=== PATIENT | male | born 1950 | race Caucasian/White ===

== ENCOUNTER → 2024-08-12 | Outpatient (CLI) | payer MEDICARE, OTHER, SELFPAY ==
--- NOTE | 2024-08-12 15:22 | XR_ITS ---
Examination: Abdomen sonogram, complete Date and time of exam: August 22, 2024 1534 hours INDICATIONS: Right upper abdominal pain beginning 4 hours ago. Technique: Multiple real-time grayscale transabdominal sonographic images of the abdomen have been obtained. Findings: Negative for gallstones Gallbladder wall 0.5 cm no edema Common bile duct 0.6 cm Pancreatic head is prominent 4.7 cm Aorta proximally measures 3.1 cm Liver 17.2 cm lobular contour fatty infiltration no focal liver lesions Normal hepatopedal portal venous flow Patent IVC Right kidney 14.2 x 7.6 x 7.6 cm renal cortex 2.1 cm Left kidney 14.4 x 8.5 x 8.3 cm cortex 2.3 cm Moderate renal parenchymal scar formation Dilated vessels near the left kidney clinical correlation advised Spleen 14.3 cm IMPRESSION: Negative for cholelithiasis Gallbladder wall is thickened although no edema, clinical correlation advised Prominent pancreatic head, consider CT scan abdomen pancreas post intravenous contrast follow-up Mild hepatomegaly primary hepatocellular disease Mild splenomegaly Moderate bilateral renal parenchymal scar formation, no hydronephrosis
== END | disposition home or self-care (01) ==
PROVIDERS: PCP Family Medicine; Referring Provider Internal Medicine Cardiovascular Disease; Visit Provider Internal Medicine Cardiovascular Disease
DX: K82.8 Other specified diseases of gallbladder (principal); R16.0 Hepatomegaly, not elsewhere classified; R16.1 Splenomegaly, not elsewhere classified; N28.89 Other specified disorders of kidney and ureter; K86.89 Other specified diseases of pancreas
CPT/HCPCS: 76700

== ENCOUNTER 2024-08-18 12:11 | Outpatient (RCR) | payer MEDICARE, OTHER, SELFPAY ==
--- NOTE | 2024-08-18 12:30 | XR_ITS ---
Examination: HUMZA, hepatobiliary radioisotope scan Date and time of exam: August 18, 2024 1220 hours INDICATIONS: Sharp abdominal pain lasting 10 hours beginning last week Technique: 6.2 mCi of 99M Hepatolite administered. Serial imaging then obtained from immediate through 60 minutes. Findings: Radioisotope activity within the liver is reasonably homogenous. Gallbladder, common bile duct small bowel activity noted Impression: Gallbladder and small bowel activity noted, negative for cystic duct obstruction
== END 2024-08-23 23:59 | disposition home or self-care (01) ==
LOC: SNUC 12:11
PROVIDERS: PCP Family Medicine; Referring Provider Physician Assistant; Visit Provider Physician Assistant
DX: R10.9 Unspecified abdominal pain (principal); Z01.818 Encounter for other preprocedural examination
CPT/HCPCS: 78227; A9537

== ENCOUNTER → 2024-08-22 | Outpatient (CLI) | payer MEDICARE, OTHER, SELFPAY ==
[2024-08-22 10:21] LABS: Alanine Aminotransferase 138 U/L (10-49); Albumin, Serum 3.6 gm/dL (3.4-4.8); Albumin/Globulin Ratio 1.1 (1.2-2.2); Alkaline Phosphatase 308 U/L (46-116); Anion Gap 9 (7-16); Aspartate Amino Transferase 163 U/L (0-34); BUN/Creatinine Ratio 22 Ratio (12-20); Bilirubin,Total 14.4 mg/dL (0.3-1.2); Blood Urea Nitrogen 22 mg/dL (9-23); Calcium 9.6 mg/dL (8.3-10.6); Calcium (Corrected) 9.9 mg/dL (8.5-10.1); Chloride 106 mMol/L (98-107); Globulin 3.4 gm/dL (2.3-3.5); Glucose 103 mg/dL (74-106); Osmolality,Calculated 282 (275-295); Potassium 3.8 mMol/L (3.4-5.1); Sodium 140 mMol/L (136-145); eGFR > 60 See Note
[2024-08-22 14:31] LABS: Urea Breath Test Negative (Negative)
== END | disposition home or self-care (01) ==
PROVIDERS: PCP Physician Assistant; Referring Provider Physician Assistant; Visit Provider Physician Assistant
DX: R11.0 Nausea (principal); R94.5 Abnormal results of liver function studies
CPT/HCPCS: 36415; 80053; 83013; 83014

== ENCOUNTER → 2024-08-23 | Outpatient (CLI) | payer MEDICARE, OTHER, SELFPAY ==
--- NOTE | 2024-08-23 10:00 | XR_ITS ---
Examination: Upper GI series with KUB Esophagram standard 18 spot fluoroscopic films of the esophagus and stomach, CASTILLO AP abdomen films Fluoroscopy August 23, 2024 1059 hours INDICATIONS: Abdominal pain months TECHNIQUE AND FINDINGS: Sap Technical [employer] AP supine abdomen nonobstructive bowel gas pattern Patient swallowed thin barium with 19 spot fluoroscopic films of the esophagus and stomach Primary peristaltic esophageal waves Small sliding esophageal hernia Intermittent esophageal reflux No stricture at the gastroesophageal junction No gastric mass deformity or ulceration No duodenal ulcer Fluoroscopy 20 seconds 18 spot fluoroscopic films IMPRESSION: Intermittent gastroesophageal reflux No stricture at the gastroesophageal junction No gastric mass deformity or ulceration Negative for duodenitis
== END | disposition home or self-care (01) ==
LOC: CDIM 10:07
PROVIDERS: PCP Family Medicine; Referring Provider Physician Assistant; Visit Provider Physician Assistant
DX: K21.9 Gastro-esophageal reflux disease without esophagitis (principal)
CPT/HCPCS: 74240

== ENCOUNTER → 2024-08-25 | Outpatient (CLI) | payer MEDICARE, OTHER, SELFPAY ==
[2024-08-25 13:01] LABS: Basophils # (Auto) 0.1 Thou/mm3 (0.0-0.2); Basophils % (Auto) 1 % (0-2.5); Eosinophils # (Auto) 0.1 Thou/mm3 (0.0-0.5); Eosinophils % (Auto) 2 % (0-10); Hematocrit 39.4 % (41.0-53.0); Hemoglobin 13.6 g/dL (13.5-16.0); Immature Granulocytes % (Auto) 0 % (0-0); Immature Granulocytes Auto 0.02 Thou/mm3 (0.00-0.00); Lymphocytes # (Auto) 1.2 Thou/mm3 (1.0-4.8); Lymphocytes % (Auto) 21 % (10-50); Mean Corpuscular HGB Conc 34.5 g/dl (31.0-37.0); Mean Corpuscular Hemoglobin 32.9 pg (25.0-35.0); Mean Corpuscular Volume 95 fL (80-100); Monocytes # (Auto) 0.8 Thou/mm3 (0.0-0.8); Monocytes % (Auto) 14 % (0-12); Neutrophils # (Auto) 3.6 Thou/mm3 (1.8-7.7); Neutrophils % (Auto) 61 % (37-80); Nucleated Red Blood Cell % 0 /100 WBC (0); Platelet Count 130 Thou/mm3 (140-440); Red Blood Count 4.14 Miln/mm3 (4.50-5.90); White Blood Count 5.9 Thou/mm3 (3.8-10.6)
[2024-08-25 13:04] LABS: INR 1.3 (0.9-1.3); Prothrombin Time 13.9 Seconds (9.0-12.2)
[2024-08-25 13:23] LABS: Ammonia 40 uMol/L (11-32)
[2024-08-25 13:41] LABS: Alanine Aminotransferase 122 U/L (10-49); Albumin, Serum 3.5 gm/dL (3.4-4.8); Albumin/Globulin Ratio 1.1 (1.2-2.2); Alkaline Phosphatase 305 U/L (46-116); Anion Gap 8 (7-16); Aspartate Amino Transferase 148 U/L (0-34); BUN/Creatinine Ratio 23 Ratio (12-20); Blood Urea Nitrogen 21 mg/dL (9-23); Calcium 9.6 mg/dL (8.3-10.6); Carbon Dioxide 26.2 mMol/L (20.0-31.0); Chloride 105 mMol/L (98-107); Creatinine (Component) 0.9 mg/dL (0.6-1.3); Globulin 3.2 gm/dL (2.3-3.5); Potassium 4.3 mMol/L (3.4-5.1); Sodium 139 mMol/L (136-145); Total Protein 6.7 gm/dL (5.7-8.2); eGFR > 60 See Note
[2024-08-25 15:34] LABS: Glucose 114 mg/dL (74-106); Osmolality,Calculated 281 (275-295)
== END | disposition home or self-care (01) ==
PROVIDERS: PCP Physician Assistant; Referring Provider Specialist; Visit Provider Specialist
DX: R10.9 Unspecified abdominal pain (principal); R11.0 Nausea; R94.5 Abnormal results of liver function studies; R53.83 Other fatigue; R79.89 Other specified abnormal findings of blood chemistry; R93.5 Abnormal findings on diagnostic imaging of other abdominal regions, including retroperitoneum; I10 Essential (primary) hypertension; K76.89 Other specified diseases of liver; K76.0 Fatty (change of) liver, not elsewhere classified; K70.30 Alcoholic cirrhosis of liver without ascites
CPT/HCPCS: 36415; 80053; 82105; 82140; 85025; 85610

== ENCOUNTER → 2024-08-25 | Outpatient (CLI) | payer MEDICARE, OTHER, SELFPAY ==
--- NOTE | 2024-08-25 17:00 | XR_ITS ---
Examination: MRI abdomen with intravenous contrast. MRI abdomen without intravenous contrast. Date and time of exam: August 25, 2024 1536 hrs. Indications: Abdominal pain other specified diseases of the liver, jaundice 3 weeks, liver irregular in contour with 12 mm solid right lobe liver lesion on CT abdomen August 16, 2024 Technique: Multiple axial, sagittal and coronal sections of the abdomen obtained. Transverse images, TR 6020, TE 107. T1 weighted transverse images, TR 582, TE 9.5. T2-weighted sagittal images, TR 4000, TE 105. T2-weighted sagittal images, TR 4000, TE 5. Coronal images, TR 4210, TE 107. Axial and coronal images are obtained post 19 cc intravenous injection, gadolinium. Findings: Cirrhosis, liver irregular in contour Precontrast images demonstrate subtle increased signal in the anterior lower right lobe of the liver at the site of the CT abdomen liver lesion This lesion is better defined on the postcontrast images with better margination or conspicuity to the surrounding liver and measures 39 x 22 mm postcontrast axial image 21 A second more anterior liver lesion is noted on the postcontrast images, 30 x 23 mm with a satellite 6 x 6 mm lesion Spleen is not enlarged Portosystemic collateral vessels medial to the spleen No pancreatic mass No hydronephrosis No ascites Impression: 3 liver lesions are identified on this MRI study, differential would include multifocal primary hepatocellular disease and hepatic metastases The largest 2 lesions are amenable to CT-guided percutaneous biopsy for diagnosis as clinically warranted
== END | disposition home or self-care (01) ==
PROVIDERS: Referring Provider Physician Assistant; Visit Provider Physician Assistant
DX: K76.9 Liver disease, unspecified (principal)
CPT/HCPCS: 74183; A9579

== ENCOUNTER → 2024-08-26 | Outpatient (CLI) | payer MEDICARE, OTHER, SELFPAY ==
[2024-08-26 10:40] LABS: INR 1.5 (0.9-1.3)
[2024-08-26 11:08] LABS: Alanine Aminotransferase 118 U/L (10-49); Albumin, Serum 3.4 gm/dL (3.4-4.8); Alkaline Phosphatase 293 U/L (46-116); Aspartate Amino Transferase 132 U/L (0-34); Bilirubin,Direct 13.7 mg/dL (0.0-0.3); Total Protein 6.4 gm/dL (5.7-8.2)
[2024-08-26 11:10] LABS: Bilirubin,Total 19.3 mg/dL (0.3-1.2)
== END | disposition home or self-care (01) ==
LOC: COPL 09:44
PROVIDERS: PCP Physician Assistant; Referring Provider Specialist; Visit Provider Specialist
DX: K72.90 Hepatic failure, unspecified without coma (principal)
CPT/HCPCS: 36415; 80076; 85610

== ENCOUNTER → 2024-09-08 | Outpatient (CLI) | payer MEDICARE, OTHER, SELFPAY ==
[2024-09-08 13:11] LABS: Ammonia 31 uMol/L (11-32)
[2024-09-08 13:21] LABS: Alanine Aminotransferase 280 U/L (10-49); Albumin, Serum 3.2 gm/dL (3.4-4.8); Albumin/Globulin Ratio 0.9 (1.2-2.2); Alkaline Phosphatase 405 U/L (46-116); Anion Gap 9 (7-16); Aspartate Amino Transferase 252 U/L (0-34); BUN/Creatinine Ratio 20 Ratio (12-20); Blood Urea Nitrogen 26 mg/dL (9-23); Calcium 8.9 mg/dL (8.3-10.6); Calcium (Corrected) 9.5 mg/dL (8.5-10.1); Carbon Dioxide 23.8 mMol/L (20.0-31.0); Chloride 101 mMol/L (98-107); Creatinine (Component) 1.3 mg/dL (0.6-1.3); Globulin 3.5 gm/dL (2.3-3.5); Glucose 120 mg/dL (74-106); Osmolality,Calculated 273 (275-295); Sodium 134 mMol/L (136-145); Total Protein 6.7 gm/dL (5.7-8.2); eGFR 59 See Note
[2024-09-08 13:37] LABS: Bilirubin,Total 24.4 mg/dL (0.3-1.2)
== END | disposition home or self-care (01) ==
LOC: COPL 12:30
PROVIDERS: PCP Physician Assistant; Referring Provider Physician Assistant; Visit Provider Physician Assistant
DX: K70.30 Alcoholic cirrhosis of liver without ascites (principal)
CPT/HCPCS: 36415; 80053; 82140

== ENCOUNTER 2024-09-14 08:12 | Outpatient (CLI) | payer MEDICARE, OTHER, SELFPAY ==
[2024-09-12 14:33] VITALS: BMI 32.1
[2024-09-13 11:31] LABS: Basophils % (Auto) 0 % (0-2.5); Eosinophils # (Auto) 0.1 Thou/mm3 (0.0-0.5); Eosinophils % (Auto) 0 % (0-10); Hematocrit 37.9 % (41.0-53.0); Hemoglobin 13.5 g/dL (13.5-16.0); Immature Granulocytes % (Auto) 2 % (0-0); Immature Granulocytes Auto 0.28 Thou/mm3 (0.00-0.00); Lymphocytes # (Auto) 1.7 Thou/mm3 (1.0-4.8); Lymphocytes % (Auto) 15 % (10-50); Mean Corpuscular HGB Conc 35.6 g/dl (31.0-37.0); Mean Corpuscular Hemoglobin 32.4 pg (25.0-35.0); Mean Corpuscular Volume 91 fL (80-100); Monocytes % (Auto) 9 % (0-12); Neutrophils # (Auto) 8.5 Thou/mm3 (1.8-7.7); Neutrophils % (Auto) 74 % (37-80); Nucleated Red Blood Cell % 0 /100 WBC (0); Platelet Count 182 Thou/mm3 (140-440); RDW Standard Deviation 66.4 fL (35.1-43.9); Red Blood Count 4.17 Miln/mm3 (4.50-5.90); White Blood Count 11.5 Thou/mm3 (3.8-10.6)
[2024-09-13 11:48] LABS: Creatinine (Component) 1.4 mg/dL (0.6-1.3); Estimated Creatinine Clearance 59.5 mL/min (>60); eGFR 54 See Note
[2024-09-13 12:03] LABS: INR 1.3 (0.9-1.3); Partial Thromboplastin Time 30.2 Seconds (22.0-36.0); Prothrombin Time 14.1 Seconds (9.0-12.2)
[2024-09-14] VITALS (15 sets, daily range): BP systolic 109–155; BP diastolic 54–88; PULSE 59–91; RESP 12–20; TEMP 36.4–36.6; O2SAT 96–100
[2024-09-14] MEDS: SODIUM CHLORIDE 0.9% 100 ML 20 ML IV (11:05)
[2024-09-14] MEDS: fentaNYL CIT INJ 50 mCg/ML AMP 2ML 100 MCG IVP (11:38)
--- NOTE | 2024-09-14 12:02 | XR_ITS ---
Examination: CT-guided percutaneous biopsy right lobe liver lesion CT abdomen with intravenous contrast Date and time of procedure: September 14, 2024 1142 hours INDICATIONS: Jaundice, abdominal pain 3 weeks, cirrhosis, right lobe liver lesion on MR abdomen August 25, 2024 Informed consent provided. A timeout was completed verifying correct patient, procedure, site and positioning. Technique: Axial 3 mm sections were obtained for localization of the right lobe liver lesion Appropriate area is marked. The patient's site was prepped and draped in sterile fashion Maximal sterile barrier technique utilized, including hand hygiene Local anesthesia was obtained with 1% lidocaine. Low dose protocols were performed. One or more of the following dose reduction techniques were used; automated exposure control, adjustment of the mA and/or KV according to patient size, use of iterative reconstruction technique. Utilizing CT fluoroscopic 2 core biopsies obtained of the right lobe liver lesion Patient appears in stable condition during this procedure. At completion of the procedure, the patient is in satisfactory condition. Estimated blood loss 0 cc Complete pathology report to follow. Impression: Successful CT-guided percutaneous biopsy right lobe liver lesion
--- NOTE | 2024-09-14 12:02 | XR_ITS ---
Examination: AP chest single view TECHNIQUE: Portable AP chest single view Exam date and time: September 2019 0516 hours INDICATIONS: Postop liver biopsy today. FINDINGS: No pneumothorax post liver biopsy Normal heart size Minor accentuation basilar bronchovascular markings Stable granuloma left lower lobe compared to chest x-ray May 07, 2012 IMPRESSION: No pneumothorax
--- NOTE | 2024-09-14 12:24 | PC.NURSE ---
1153 patient is awake, alert, breathing unlabored, s/p liver biopsy, dressing dry with no bleeding, patient transferred to [facility] for recovery. star xray ordered by . 1219 chest xray completed
--- NOTE | 2024-09-14 14:32 | PC.NURSE ---
1318 patient is awake, alert, breathing unlabored, dressing dry with no bleeding, patient able to tolerate sandwich and 7up with no nausea or vomiting, meets discharge criteria, discharge instructions given to patient and , patient discharged home in wheelchair with all belongings. no pneumothorax seen on xray images, ok to discharge patient home per
== END 2024-09-14 13:18 | disposition home or self-care (01) ==
PROVIDERS: Radiology Diagnostic Radiology; PCP Family Medicine; Referring Provider Specialist; Visit Provider Specialist
DX: K74.00 Hepatic fibrosis, unspecified (principal); Z01.812 Encounter for preprocedural laboratory examination
CPT/HCPCS: 47000; 36415; 77012; 82565; 85025; 85610; 85730; J3010; J7050

== ENCOUNTER 2024-09-19 14:20 | Inpatient (IN) | payer MEDICARE, OTHER, SELFPAY ==
[2024-09-19] VITALS (12 sets, daily range): BP systolic 124–143; BP diastolic 59–75; PULSE 71–78; RESP 13–25; TEMP 36.4–36.7; O2SAT 96–99; BMI 31.4; BMI 31.1
--- NOTE | 2024-09-19 14:52 | EDNOTE_ITS ---
ED General RME/HPI General Chief complaint: Weakness Stated complaint: WEAKNESS Time Seen by Provider: 09/19/24 14:50 Arrival date/time: 09/19/24 14:20 CC: Weakness HPI patient presents the ER via EMS reports stable vital signs observing the patient ambulating to the [facility] without complications patient is complaining of severe weakness. He is seen by Dr. Lay with his PCP and Dr. Danial FARAH, patient has cirrhosis secondary to alcoholism and thinks he is also hepatitis positive. The patient states he is frustrated taking his lactulose but denies any altered mentation. Patient denies any chest pain shortness of breath or difficulty breathing. Related Data Home Medications ?Medication ?Instructions ?Recorded ?Confirmed amlodipine 5 mg tablet 5 mg PO QDAY 01/05/24 09/14/24 aspirin 81 mg capsule 81 mg PO QDAY 01/05/24 09/14/24 losartan 100 mg tablet 100 mg PO QDAY 01/05/24 09/14/24 tizanidine 4 mg tablet 4 mg PO QDAY 01/05/24 09/14/24 prednisone 10 mg tablet 40 mg PO QDAY 09/14/24 09/14/24 Allergies Allergy/AdvReac Type Severity Reaction Status Date / Time No Known Allergies Allergy Verified 09/14/24 08:52 Review of Systems Review of Systems Narrative Review of Systems: GEN: No fever, no chills, no weight loss EYES: No discharge, no visual changes, no pain HEENT: No ear pain, no congestion, no sore throat PULM: No shortness of breath, no cough, no congestion CV: No chest pain, no dyspnea on exertion, no palpitations GI: No nausea, no vomiting, no diarrhea, no pain, no constipation : No frequency, no urgency, no dysuria MUSC/SKEL: No joint pain, no back pain SKIN: No rash PSYCH: No hallucinations, no depression HEME/LYMPH: No easy bleeding or bruising tendencies NEURO: + weakness, no headache Past Medical History Past Medical History NEUROLOGIC: Negative Neurological Disorders or Seizures CARDIAC: Positive Cardiac Disorders and Hypertension; Negative Congestive Heart Failure RESPIRATORY: Positive Asthma (as a kid); Negative Chronic Obstructive Pulmonary Disease (COPD) GASTROINTESTINAL: Negative Gastrointestinal Disorders GENITOURINARY: Negative Genitourinary Disorders or Renal Disease MUSCULOSKELETAL: Positive Musculoskeletal Disorders (L3 and L4 correction. L4-L5 bone spurs.) ENDOCRINE: Negative Endocrine Disorders, Diabetes Mellitus Type 1 or Diabetes Mellitus Type 2 HEMATOLOGIC: Negative Blood Disorders OTHER HISTORY: Negative Blood Transfusions, Anesthesia Reactions or Cancer Family History FAMILY HISTORY: Negative Family Anesthesia Reaction Surgical History SURGICAL: Positive Eye Surgery (glaucoma lenses replaced), Tonsillectomy and Joint Replacement; Negative Cardiac Surgery Social History SMOKING STATUS: Never smoker ED Exam Narrative Physical exam: [General: Uncomfortable but not in any acute distress Head normocephalic HEENT: Eyes icteric sclera's, pupils are PERRLA EOMs are intact mouth pink dry membranes. All other subsystems of HEENT are within acceptable limits Neck is supple nontender no JVD no edema Chest equal chest rise nontender to palpation Respiratory: Clear to auscultation no wheezes crackles or rubs CV: Rate rhythm is regular no murmurs rubs or clicks Abdomen is distended secondary to body habitus soft nontender no masses positive bowel sounds all 4 quadrants Back: No CVA tenderness no spinous process tenderness from cervical spine thoracic and lumbar spine Skin: Jaundice, intact no petechiae rash induration ulceration or crepitus Extremities: Moving all extremity against resistance cap refill less than 2 seconds neurosensory intact Neuro: Awake alert oriented x3 Glascow coma 15 no focal deficits] Course Course Course Narrative: Patient's case discussed with Dr. Barrow who is familiar with the patient states he wants the patient admitted he will consult for the cirrhosis component. Patient needs to be admitted for SABINE. Patient's case discussed with Dr. Maravilla resident for Dr. Guevara who agrees to except for admission. Quality Measures none Orders Category Date Time Status Consult to Gastroenterology Stat Cons 09/19/24 16:34 Ordered Ammonia Stat Lab 09/19/24 15:10 Completed B-Type Natriuretic Peptide Stat Lab 09/19/24 15:10 Completed CBC Stat Lab 09/19/24 15:10 Completed Comprehensive Metabolic Panel Stat Lab 09/19/24 15:10 Completed Drug Screen,Urine Stat Lab 09/19/24 14:51 Ordered LDH (Lactate Dehydrogenase) Stat Lab 09/19/24 15:10 Completed Magnesium Stat Lab 09/19/24 15:10 Completed Partial Thromboplastin Time Stat Lab 09/19/24 15:10 Completed Prothrombin Time with INR Stat Lab 09/19/24 15:10 Completed Urinalysis Stat Lab 09/19/24 14:51 Ordered Sodium Chloride 0.9% 1000 ml [Ns] 1,000 ml Med 09/19/24 16:44 Active IV 85 mls/hr Vital Signs Vital signs: Vital Signs Temperature 97.6 F 09/19/24 14:24 Pulse Rate 77 09/19/24 14:24 Respiratory Rate 17 09/19/24 14:24 Blood Pressure 124/75 09/19/24 14:24 Pulse Oximetry (%) 99 09/19/24 14:24 Oxygen Delivery Method Room Air 09/19/24 14:24 MDM Patient data External records reviewed:: [facility] previous records and EMS form Clinical information provided by:: patient and EMS Social determinants that could affect healthcare access:: none Patient has the following chronic illnesses:: Cirrhosis alcoholic based How is presenting disease/condition affected by chronic disease/condition?: u neffected by Evaluation data The following diagnostics were reviewed and interpreted by me:: lab results and radiology exam(s) Lab and/or radiology exams considered but not ordered:: CBC shows a WBC of 10.7 and an H&H of 13.0 and 35.5 platelets of 170 CMP shows sodium 143 potassium 3.4 chloride of 108 CO2 of 21.9 BUN of 52 creatinine 2.1 glucose of 120 Total bili of 27.9 AST 361 ALT 373 alk phos of 557. Interpretation Summary: Patient has AKA but also with worsening cirrhosis. Patient is to be admitted with a consult by Dr. Barrow. Medications Medications considered but not ordered:: None Medication administrations:: Medication Administration History Sodium Chloride (Ns) 1,000 mls @ 85 mls/hr IV .[id number] [facility] Stop: 10/19/24 16:43 None Consultations Consultation(s) initiated? (list below): Yes Diagnosis Differential Diagnosis ED Complaint MDM: SABINE cirrhosis sepsis Most likely diagnosis given after review of the tests above:: SABINE cirrhosis Admission Indicated Admission indicated?: indicated Explain why admission is indicated or not indicated:: Further medical management Admission Request Was there a request for admission?: No Disposition Plan Disposition Plan: Admit Medical Decision Making Differential Diagnosis Differential Diagnosis: SABINE cirrhosis sepsis Lab Data 09/19/24 15:10 09/19/24 15:10 Labs: Lab Results 09/19/24 Range/Units 15:10 WBC 10.7 H (3.8-10.6) Thou/mm3 RBC 4.01 L (4.50-5.90) Miln/mm3 Hgb 13.0 L (13.5-16.0) g/dL Hct 35.5 L (41.0-53.0) % MCV 89 (80-100) fL MCH 32.4 (25.0-35.0) pg MCHC 36.6 (31.0-37.0) g/dl RDW Std Deviation 67.8 H (35.1-43.9) fL Plt Count 170 (140-440) Thou/mm3 Neut % (Auto) 72 (37-80) % Lymph % (Auto) 13 (10-50) % [place] % (Auto) 11 (0-12) % Eos % (Auto) 1 (0-10) % Baso % (Auto) 1 (0-2.5) % Neut # (Auto) 7.7 (1.8-7.7) Thou/mm3 Lymph # (Auto) 1.4 (1.0-4.8) Thou/mm3 [place] # (Auto) 1.1 H (0.0-0.8) Thou/mm3 Eos # (Auto) 0.1 (0.0-0.5) Thou/mm3 Baso # (Auto) 0.1 (0.0-0.2) Thou/mm3 Immature Gran # (Auto) 0.22 H (0.00-0.00) Thou/mm3 Absolute Nucleated RBC 0.00 (0.00-0.00) Thou/mm3 Immature Gran % 2 H (0-0) % Nucleated RBC % 0 (0) /100 WBC PT 14.9 H (9.0-12.2) Seconds INR 1.4 H (0.9-1.3) APTT 30.9 (22.0-36.0) Seconds Sodium 143 (136-145) mMol/L Potassium 3.4 (3.4-5.1) mMol/L Chloride 108 H (98-107) mMol/L Carbon Dioxide 21.9 (20.0-31.0) mMol/L Anion Gap 13 (7-16) BUN 52 H (9-23) mg/dL Creatinine 2.1 H D (0.6-1.3) mg/dL Estim Creat Clear Calc 38.7 L (>60) mL/min eGFR 33 L (60 - ) See Note BUN/Creatinine Ratio 25 H (12-20) Ratio Glucose 120 H (74-106) mg/dL Calculated Osmolality 299 H (275-295) Calcium 8.9 (8.3-10.6) mg/dL Corrected Calcium 9.7 (8.5-10.1) mg/dL Magnesium 2.6 (1.6-2.6) mg/dL Total Bilirubin 27.9 H* (0.3-1.2) mg/dL AST 361 H (0-34) U/L ALT 373 H (10-49) U/L Alkaline Phosphatase 557 H (46-116) U/L Ammonia 30 (11-32) uMol/L Lactate Dehydrogenase 338 H (120-246) U/L B-Natriuretic Peptide 38 (0-100) pg/mL Total Protein 6.2 (5.7-8.2) gm/dL Albumin 3.0 L (3.4-4.8) gm/dL Globulin 3.2 (2.3-3.5) gm/dL Albumin/Globulin Ratio 0.9 L (1.2-2.2) Discharge Plan Plan Patient Disposition: Other Care w/in Hosp ([facility]) Prescriptions/Referrals Prescriptions/Med Rec: No Action tizanidine 4 mg tablet 4 mg PO QDAY Hold Instructions: Resume on 01/06/24. Patient Comments: TAKE 1 TABLET BY MOUTH THREE TIMES A DAY NEEDED FOR 10 DAYS amlodipine 5 mg tablet 5 mg PO QDAY losartan 100 mg tablet 100 mg PO QDAY Patient Comments: TAKE 1 TABLET BY MOUTH EVERY DAY aspirin 81 mg Capsule 81 mg PO QDAY Hold Instructions: Resume on 09/16/24. Resume aspirin on thursday09/16/24 prednisone 10 mg Tablet 40 mg PO QDAY Rx Instructions: total of 40mg daily in divided doses Problem List Clinical Impression: SABINE (acute kidney injury), Cirrhosis, Jaundice Patient/Caregiver Discharge Instructions Print Language: Armenian Stand Alone Forms: [facility] Award Info., Patient Portal Info Letter PA/WOOD TYPE CUTTER Supervising Physician PA/WOOD TYPE CUTTER Supervising Physician: Jb Garsia ENP
[2024-09-19 15:16] LABS: Basophils # (Auto) 0.1 Thou/mm3 (0.0-0.2); Basophils % (Auto) 1 % (0-2.5); Eosinophils # (Auto) 0.1 Thou/mm3 (0.0-0.5); Eosinophils % (Auto) 1 % (0-10); Hematocrit 35.5 % (41.0-53.0); Immature Granulocytes % (Auto) 2 % (0-0); Immature Granulocytes Auto 0.22 Thou/mm3 (0.00-0.00); Lymphocytes # (Auto) 1.4 Thou/mm3 (1.0-4.8); Lymphocytes % (Auto) 13 % (10-50); Mean Corpuscular HGB Conc 36.6 g/dl (31.0-37.0); Mean Corpuscular Hemoglobin 32.4 pg (25.0-35.0); Mean Corpuscular Volume 89 fL (80-100); Monocytes # (Auto) 1.1 Thou/mm3 (0.0-0.8); Monocytes % (Auto) 11 % (0-12); Neutrophils # (Auto) 7.7 Thou/mm3 (1.8-7.7); Neutrophils % (Auto) 72 % (37-80); Nucleated Red Blood Cell % 0 /100 WBC (0); Platelet Count 170 Thou/mm3 (140-440); RDW Standard Deviation 67.8 fL (35.1-43.9); Red Blood Count 4.01 Miln/mm3 (4.50-5.90); White Blood Count 10.7 Thou/mm3 (3.8-10.6)
[2024-09-19 15:33] LABS: INR 1.4 (0.9-1.3); Partial Thromboplastin Time 30.9 Seconds (22.0-36.0); Prothrombin Time 14.9 Seconds (9.0-12.2)
--- NOTE | 2024-09-19 15:35 | PC.NURSE ---
pt came in due to jaundice, confusion, and gen body weakness for a few mo but worse today. pt has been dx with liver failure and lesions on liver and bipsy done per and they were benign. pt is gcs of 15 but is slow to respond. at bedside. vss.
[2024-09-19 15:36] LABS: B-Type Natriuretic Peptide 38 pg/mL (0-100)
[2024-09-19 15:37] LABS: Ammonia 30 uMol/L (11-32)
[2024-09-19 15:45] LABS: Alanine Aminotransferase 373 U/L (10-49); Albumin/Globulin Ratio 0.9 (1.2-2.2); Alkaline Phosphatase 557 U/L (46-116); Anion Gap 13 (7-16); Aspartate Amino Transferase 361 U/L (0-34); BUN/Creatinine Ratio 25 Ratio (12-20); Blood Urea Nitrogen 52 mg/dL (9-23); Calcium 8.9 mg/dL (8.3-10.6); Calcium (Corrected) 9.7 mg/dL (8.5-10.1); Carbon Dioxide 21.9 mMol/L (20.0-31.0); Chloride 108 mMol/L (98-107); Creatinine (Component) 2.1 mg/dL (0.6-1.3); Estimated Creatinine Clearance 38.7 mL/min (>60); Globulin 3.2 gm/dL (2.3-3.5); Glucose 120 mg/dL (74-106); LDH (Lactate Dehydrogenase) 338 U/L (120-246); Magnesium 2.6 mg/dL (1.6-2.6); Osmolality,Calculated 299 (275-295); Potassium 3.4 mMol/L (3.4-5.1); Sodium 143 mMol/L (136-145); Total Protein 6.2 gm/dL (5.7-8.2); eGFR 33 See Note
[2024-09-19 16:13] LABS: Bilirubin,Total 27.9 mg/dL (0.3-1.2)
--- NOTE | 2024-09-19 17:37 | PD.RESHP ---
Documentation for date of: 09/19/24 HPI History of Present Illness Chief complaint: weakness History of present illness: 74-year-old male with past medical history of alcohol cirrhosis, alcohol use disorder, rheumatoid arthritis, hypertension, spinal stenosis, and CVA was admitted to the hospital on 09/19/2024 after coming to the ED which she complains of generalized weakness. On assessment patient stated that he has not been having good oral intake. He endorsed feeling shaky and having some mild cough as well as some confusion at times. who was at bedside and stated that he has been confused and that he has been having poor oral intake. Patient has cirrhosis diagnosed with liver biopsy in 09/14/2024 and he is following a GI specialist who is in talks for possible liver transplant. As per patient he states that his last alcoholic drink was around 8 months ago and that he has not had any other drink after that. At the time of assessment he was alert and oriented x 4. He had no complaints during this time and he also mentioned that he did not have any blood in the stools, vomiting blood, fevers, chills, or abdominal discomfort. ED course: Initially patient was afebrile and normotensive. Initial labs were relevant for mild leukocytosis (10.7), normocytic normochromic anemia (Hgb 13.0), coagulopathy (PT 14.9 and INR 1.4), SABINE (BUN 52 and creatinine 2.1), hyperbilirubinemia (27.9), transaminitis (AST 361/ALT 373/alkaline phosphatase 557), elevated lactate dehydrogenase 338, and hypoalbuminemia (3). There was some no initial imaging at this time. PMH: As above Social Hx: Past alcohol use (quit 8 months ago), denies any smoking or drugs Surgical Hx: Bilateral knee replacement, tonsillectomy, and thyroid biopsy Review of Systems Review of Systems Narrative Review of Systems: Constitutional: Denies sweats, Denies weight loss/gain, Denies fever, Denies chills, Admits weakness. HEENT: Denies hearing loss, Denies ear pain, Denies postnasal drip, Denies double vision, Denies blurry vision. Respiratory: Denies shortness of breath, Admits cough, Denies wheezing. Cardiovascular: Denies chest pain, Denies palpitations, Denies sudden loss of consciousness. GI: Denies blood in stool, Denies constipation, Denies abdominal pain, Denies difficulty swallowing, Denies nausea or vomit. : Denies urinary incontinence, Denies pain while urinating, Denies increased urinary frequency. MSK: Denies joint pain, Denies joint swelling, Denies numbness. Skin: Denies rash, Denies itching, Denies easy bruising. Neuro: Denies headaches, Denies dizziness, Denies seizures. Past Medical History Past Medical History NEUROLOGIC: Negative Neurological Disorders or Seizures CARDIAC: Positive Cardiac Disorders and Hypertension; Negative Congestive Heart Failure RESPIRATORY: Positive Asthma (as a kid); Negative Chronic Obstructive Pulmonary Disease (COPD) GASTROINTESTINAL: Negative Gastrointestinal Disorders GENITOURINARY: Negative Genitourinary Disorders or Renal Disease MUSCULOSKELETAL: Positive Musculoskeletal Disorders (L3 and L4 correction. L4-L5 bone spurs.) ENDOCRINE: Negative Endocrine Disorders, Diabetes Mellitus Type 1 or Diabetes Mellitus Type 2 HEMATOLOGIC: Negative Blood Disorders OTHER HISTORY: Negative Blood Transfusions, Anesthesia Reactions or Cancer Family History FAMILY HISTORY: Negative Family Anesthesia Reaction Surgical History SURGICAL: Positive Eye Surgery (glaucoma lenses replaced), Tonsillectomy and Joint Replacement; Negative Cardiac Surgery Social History SMOKING STATUS: Never smoker Exam Vital Signs Temp Pulse Resp BP Pulse Ox O2 Del Method 97.5 F 75 18 129/63 97 Room Air 09/19/24 16:20 09/19/24 16:20 09/19/24 16:20 09/19/24 16:20 09/19/24 16:20 09/19/24 16:20 Narrative Exam General: A/O x3, no acute distress Eyes: PERRL, EOMI. icteric, vision grossly intact. Ears: No ear pain, no ear discharge, Hearing grossly intact. Nose: No nasal discharge. Mouth/Throat: Dry mucous membranes, no redness, no lesions. Neck: Neck supple, non-tender, no cervical lymphadenopathy. Lungs: Clear DOMINIK to auscultation and percussion, No accessory muscle use. Cardio: Normal S1/S2, regular rhythm, no murmurs, no JVD Abdomen: Soft, non-tender, no palpable masses, peristalsis present, no guarding or rebound. Positive for fluid wave. Extremities: Symmetrical, no significant deformities, 2+ peripheral edema , non-tender, peripheral pulses presents. Skin: No rashes, no lesions, warm to touch. Jaundice all throughout. Neuro: No focal neurological deficits. motor and sensory intact Psych: Cooperative, appropriate mood and effect. Results: Labs 09/20/24 04:50 09/20/24 04:50 Labs: Short CBC 09/19/24 Range/Units 15:10 WBC 10.7 H (3.8-10.6) Thou/mm3 Hgb 13.0 L (13.5-16.0) g/dL Hct 35.5 L (41.0-53.0) % Plt Count 170 (140-440) Thou/mm3 BMP 09/19/24 15:10 Sodium 143 Potassium 3.4 Chloride 108 H Carbon Dioxide 21.9 BUN 52 H Creatinine 2.1 H D Glucose 120 H Calcium 8.9 Liver Function 09/19/24 Range/Units 15:10 Total Bilirubin 27.9 H* (0.3-1.2) mg/dL AST 361 H (0-34) U/L ALT 373 H (10-49) U/L Alkaline Phosphatase 557 H (46-116) U/L Albumin 3.0 L (3.4-4.8) gm/dL Quality Measures Quality Measures none Advance care planning discussed with:: patient Medications Home Medications and Allergies Home Medications ?Medication ?Instructions ?Recorded ?Confirmed ?Type amlodipine 5 mg tablet 5 mg PO QDAY 01/05/24 09/14/24 History aspirin 81 mg capsule 81 mg PO QDAY 01/05/24 09/14/24 History losartan 100 mg tablet 100 mg PO QDAY 01/05/24 09/14/24 History tizanidine 4 mg tablet 4 mg PO QDAY 01/05/24 09/14/24 History prednisone 10 mg tablet 40 mg PO QDAY 09/14/24 09/14/24 History Allergies Allergy/AdvReac Type Severity Reaction Status Date / Time No Known Allergies Allergy Verified 09/14/24 08:52 Visit Medications Acetaminophen (Acetaminophen 325 Mg Tablet) 650 mg PO Q6H PRN PRN Reason: pain and Fever >100.4 Stop: 10/19/24 17:22 Hydrocodone Bitart/Acetaminophen (Hydrocodone/Apap 5/325 Tablet) 1 tab PO Q4HR PRN PRN Reason: PAIN SCALE 4-6 (Moderate Stop: 09/24/24 17:22 Sodium Chloride (Ns) 1,000 mls @ 85 mls/hr IV .[id number] HAILY Stop: 10/19/24 16:43 Octreotide Acetate 1,000 mcg/ (Sodium Chloride) 102 mls @ 5.1 mls/hr IV .Q20H HAILY; Protocol Stop: 09/24/24 17:59 Ceftriaxone Sodium/Dextrose (Rocephin/D5w 1gm Iv Premix) 50 mls @ 100 mls/hr IV QDAY@1400 HAILY Stop: 09/26/24 17:29 Albumin Human (Albuminar-25 Ivpb) 25 gm in 100 mls @ 100 mls/hr IV QID [facility] Stop: 09/22/24 17:29 Octreotide Acetate 1,000 mcg/ (Sodium Chloride) 102 mls @ 5.1 mls/hr IV .Q20H HAILY; Protocol Stop: 09/20/24 13:29 Lactulose (Lactulose Syrup 20 Gm/30 Ml Udc) 10 gm PO QDAY [facility]; Protocol Stop: 10/20/24 08:59 Midodrine (Midodrine 5 Mg Tablet) 5 mg PO TID [facility] Stop: 10/19/24 17:29 Morphine Sulfate (Morphine Sulf Inj 10 Mg/Ml Vial) 2 mg IVP Q4H PRN PRN Reason: PAIN SCALE 7-10 (Severe Stop: 09/24/24 17:22 Ondansetron HCl (Ondansetron Inj 2 Mg/Ml Inj 2 Ml) 4 mg IV Q6H PRN; Protocol PRN Reason: NAUSEA OR VOMITING Stop: 10/19/24 17:22 Pantoprazole Sodium (Pantoprazole Inj 40 Mg Vial) 40 mg IVP QDAY [facility] Stop: 10/19/24 17:29 Discontinued Medications Ceftriaxone Sodium/Dextrose (Rocephin/D5w 1gm Iv Premix) 50 mls @ 100 mls/hr IV QDAY [facility] Stop: 09/26/24 17:23 Lactulose (Lactulose Syrup 20 Gm/30 Ml Udc) 20 gm PO QDAY [facility]; Protocol Stop: 10/20/24 08:59 Assessment & Plan Plan 74-year-old male with past medical history of alcohol cirrhosis, alcohol use disorder, rheumatoid arthritis, hypertension, spinal stenosis, and CVA was admitted to the hospital on 09/19/2024 for SABINE likely in the setting of poor oral intake versus hepatorenal in the setting of decompensated cirrhosis. #SABINE likely prerenal in the setting of #Poor oral intake #Decompensated cirrhosis #Hepatorenal syndrome? #Generalized weakness ?Patient came in with a creatinine of 2.1 and BUN of 52 ? Patient's base creatinine is around 1 with the most recent 1 being 1.3 on 09/08/2024 ?DDx SABINE likely prerenal in the setting of poor oral intake versus hepatorenal in the setting of decompensated cirrhosis ?MELD NA score of 3 points, 27 to 32% estimated mortality in 90 days ? Child-Hatfield score of 9 points, child class B, patient would benefit from liver transplant ?No suspicion for SBP now given the patient does not have any GI bleed Plan: ? IV fluids ? Lactulose 10 g daily ? Albumin 25 g 4 times daily ? Nephrology consulted, appreciate commendations ? GI consulted, appreciate recommendations ? Will continue to monitor #Coagulopathy #Hyperbilirubinemia #Transaminitis ? AST 361, ALT 373, alkaline phosphatase 557, T bilirubin 27.9 on admission ?PT 14.9 and INR 1.4 ? Most likely in the setting of decompensated cirrhosis Plan: ? Will continue to monitor #Hypoalbuminemia ? Albumin 3 on admission Plan: ? Albumin 25 g 4 times daily ? Return water #Mild leukocytosis ?Patient had WBC of 10.7 on admission ? Likely reactive ? No fever or possible source of infection. Plan: ? Will continue to monitor #Normocytic normochromic anemia ?Hemoglobin 13 admission ? Patient has a base hemoglobin of around 13.5 Plan: ? Will transfuse hemoglobin less than 7 ? Will continue monitor #Hx of CVA ? Patient takes aspirin at home #Hx of HTN ? Will hold off on antihypertensive medications for now given possible hepatorenal syndrome. Disposition: Patient admitted to med/tele for SABINE 2/2 poor oral intake vs hepatorenal. Diet: Renal GI prophylaxis: protonix DVT prophylaxis: SCDs Code: Full code Case disclosed with Attending Dr. Haddad and My senior Dr. Maravilla PGY2. Paddy Mejia PGY1 Senior Resident Attestation: Mr. Argueta is a 74-year-old male with significant past medical history of alcoholic cirrhosis, alcohol use disorder, rheumatoid arthritis, HTN, spinal stenosis, and CVA for 2 times who presented to ED on 09/19/2024 with chief complaint of generalized weakness. He has been following outpatient with SOFI Barrow who recommended him to come to the hospital. As per Dr. Barrow, the patient has undergone outpatient MRCP and that has not been significant for any obstruction or common biliary duct dilatation. In the ED his vitals were stable, physical examination was significant for mild ascites, 1-2+ bilateral lower limb pitting edema with generalized icterus. Labs were significant for BUN 52 and creatinine 2.1, likely secondary to prerenal SABINE in the setting of decreased oral intake for past couple of days. Liver enzymes were significant for bilirubin of 27.9, AST/ALT 361/373 with ALP 557. [employer] Receiver Dr. Yu was consulted for prerenal SABINE who recommended continuing with albumin and monitoring renal panel at this point. GI Dr. Barrow was consulted, pending recommendations. I discussed with and supervised the customer experience intern physician involved in the care of this patient. I personally saw and examined the patient and discussed the assessment and plan with the entire medicine team, including my attending. I agree with the assessment and plan as documented above. Dante Maravilla MD PGY2 Internal Medicine Attending Provider Attestation/Addendum I have examined the patient, reviewed labs and imaging findings, discussed the case with the resident(s), and reviewed entered orders. I agree with the plan of care as outlined in this note, with these additional summaries/recommendations: Patient is a 74-year-old male with a medical history of primary hypertension and cirrhosis likely secondary to alcohol use presents to [facility] emergency department on 09/19/2024 with chief complaint of generalized weakness. In the emergency room patient was found to have decompensated cirrhosis and SABINE and thus hospitalist team was consulted for continuation of care. # Decompensated cirrhosis # Transaminitis Likely secondary to alcohol use Signs of synthetic liver dysfunction with coagulopathy, hyperbilirubinemia, and hypoalbuminemia Mild-NA score of 30 points indicating 27 to 32% estimated 90-day mortality Child Hatfield score is 9 points indicating child class B with abdominal surgery perioperative mortality of 30% Daily LFTs, platelet, INR, sodium Volume management: We will hold diuresis in the setting of possible hepatorenal syndrome Hepatic encephalopathy prevention: We will decrease lactulose dose and ammonia within normal limits on admission No more than 2 g Tylenol per day Low-sodium diet, fluid restriction Plan: Gastroenterology consulted, recommendations appreciated. Avoid hepatotoxic agents. # SABINE Etiology prerenal secondary to poor oral intake versus hepatorenal syndrome (type I: Rapidly progressive over days versus type II diuretic refractory ascites) On admission creatinine 2.1 and BUN 52. (Baseline Cr 1.3) Plan: Consult nephrology and we will discuss that patient should undergo albumin challenge x 2 days to confirm not prerenal. If improves this is hypovolemic renal failure and if fails to improve this is suggestive of hepatorenal syndrome. # Primary hypertension Plan: Hold home antihypertensives for now. Dr. Haddad
[2024-09-19] MEDS: ALBUMIN HUMAN 25% IVPB 25 GM/100 ML BTL IV ×2 (18:23→22:00)
[2024-09-19] MEDS: SODIUM CHLORIDE 0.9% 1000 ML 1,000 ML 85 ML IV (18:23)
[2024-09-19] MEDS: PANTOPRAZOLE INJ 40 MG VIAL IVP (18:23)
--- NOTE | 2024-09-19 19:16 | PC.NURSE ---
attempted to call report to floor for pt but primary MT nurse unable to get report at this time. Night Rn Gardenia aware
--- NOTE | 2024-09-19 20:35 | PC.NURSE ---
REPORT CALLED TO DO GONZLAEZ. ALL QUESTIONS ASKED AND ANSWERED. PATIENT TRANSFERRED TO ROOM BY STAFF. NO DISTRESS NOTED AT TRANSFER.
--- NOTE | 2024-09-19 23:06 | PD.IMCONS ---
HPI Data of Consult Requesting Physician: Paddy Mejia MD Primary Care Provider: Emi Cook PA-C Consult Narrative Reason for consult: Worsening LFTs worsening renal function weak shaky History of present illness: 74 years old male came into the emergency room feeling very weak and shaky His total bilirubin had jumped up to 27.9 with an AST ALT of 361 and 373 and alk phos of 557 BUN/creatinine also jumped up to 52 and 2.1 He was subsequently admitted His calculated MELD score is 30 He had extensive GI workup done as an outpatient Imaging studies as shown 3 lesions in the liver one of them which was the largest on biopsy came back negative for hepatocellular carcinoma patient has not drank for 8 months MRCP as an outpatient did not show any obstruction of the biliary system Patient was subsequently admitted cc:: cc: Paddy Mejia MD Review of Systems Review of Systems Systems Reviewed: All systems reviewed, normal except as documented Past Medical History Surgical History OTHER SURGICAL HX: Bilateral knee replacement Rheumatoid arthritis Thyroid biopsy Meds Home Medications and Allergies Home Medications ?Medication ?Instructions ?Recorded ?Confirmed ?Type amlodipine 5 mg tablet 5 mg PO QDAY 01/05/24 09/14/24 History aspirin 81 mg capsule 81 mg PO QDAY 01/05/24 09/14/24 History losartan 100 mg tablet 100 mg PO QDAY 01/05/24 09/14/24 History tizanidine 4 mg tablet 4 mg PO QDAY 01/05/24 09/14/24 History prednisone 10 mg tablet 40 mg PO QDAY 09/14/24 09/14/24 History Allergies Allergy/AdvReac Type Severity Reaction Status Date / Time No Known Allergies Allergy Verified 09/14/24 08:52 Exam Vital Signs Temp Pulse Resp BP Pulse Ox O2 Del Method 98.1 F 78 17 136/63 H 97 Room Air 09/19/24 18:00 09/19/24 20:33 09/19/24 20:33 09/19/24 20:33 09/19/24 20:33 09/19/24 18:00 Constitutional Comments: Icteric sclera weak and sick appearing Routine Respiratory Exam Comments: Normal to auscultation Routine Abdominal Exam Comments: Soft nontender Results Labs 09/20/24 04:50 09/20/24 04:50 Labs: Short CBC 09/19/24 Range/Units 15:10 WBC 10.7 H (3.8-10.6) Thou/mm3 Hgb 13.0 L (13.5-16.0) g/dL Hct 35.5 L (41.0-53.0) % Plt Count 170 (140-440) Thou/mm3 BMP 09/19/24 15:10 Sodium 143 Potassium 3.4 Chloride 108 H Carbon Dioxide 21.9 BUN 52 H Creatinine 2.1 H D Glucose 120 H Calcium 8.9 Liver Function 09/19/24 Range/Units 15:10 Total Bilirubin 27.9 H* (0.3-1.2) mg/dL AST 361 H (0-34) U/L ALT 373 H (10-49) U/L Alkaline Phosphatase 557 H (46-116) U/L Albumin 3.0 L (3.4-4.8) gm/dL Assessment and Plan Additional Assessment & Plan Additional Plan: # Decompensated chronic liver disease with acute decompensation etiology previous consumption of alcohol although patient has not drank for 8 months # Worsening renal function patient may be going into hepatorenal syndrome # Weakness secondary to above Plan Admit the patient Supportive care I will speak with [facility] to see if the patient can be excepted in transfer for a liver transplant evaluation Otherwise his prognosis is very poor Thank you very much for the opportunity to participate in the care of this patient
[2024-09-20] VITALS (9 sets, daily range): BP systolic 122–152; BP diastolic 62–72; PULSE 69–83; RESP 14–96; TEMP 36.2–36.9; O2SAT 94–98; BMI 31.3
[2024-09-20 00:19] LABS: Collection Type, Urine Clean Catch
[2024-09-20 00:58] LABS: Bacteria,Urine Rare; Bilirubin,Urine 3+ (Negative); Blood,Urine Negative (Negative); Clarity,Urine Clear (Clear/Hazy); Color,Urine Drk-Yellow (Lt Yel-Yel); Glucose, Urine Negative (Negative); Ketones,Urine Negative (Negative); Leukocyte Esterase,Urine Negative (Negative); Nitrite,Urine Negative (Negative); PH,Urine 5.5 (5.0-7.0); Protein,Urine Negative (Neg - Trace); RBC,Urine 1 /hpf (0-3); Specific Gravity,Urine 1.015 (1.001-1.035); Squamous Epithelial Cell,Urine 1 /hpf (0-5); WBC,Urine 2 /hpf (0-5)
[2024-09-20 01:11] LABS: Amphetamine/Methamp Scrn,U Negative (Negative); Barbiturate Screen,Urine Negative (Negative); Benzodiazepines Screen,Urine Negative (Negative); Benzoylecgonine Screen, Ur Negative (Negative); Fentanyl Screen,Urine Negative (Negative); Opiate Screen,Urine Negative (Negative); THC Screen,Urine Negative (Negative)
[2024-09-20] MEDS: ALBUMIN HUMAN 25% IVPB 25 GM/100 ML BTL IV ×4 (05:10→20:58)
[2024-09-20 05:58] LABS: Basophils # (Auto) 0.1 Thou/mm3 (0.0-0.2); Basophils % (Auto) 1 % (0-2.5); Eosinophils # (Auto) 0.2 Thou/mm3 (0.0-0.5); Eosinophils % (Auto) 3 % (0-10); Hematocrit 28.9 % (41.0-53.0); Hemoglobin 10.9 g/dL (13.5-16.0); Immature Granulocytes % (Auto) 1 % (0-0); Immature Granulocytes Auto 0.09 Thou/mm3 (0.00-0.00); Lymphocytes # (Auto) 1.4 Thou/mm3 (1.0-4.8); Lymphocytes % (Auto) 19 % (10-50); Mean Corpuscular HGB Conc 37.7 g/dl (31.0-37.0); Mean Corpuscular Hemoglobin 32.3 pg (25.0-35.0); Mean Corpuscular Volume 86 fL (80-100); Monocytes # (Auto) 0.9 Thou/mm3 (0.0-0.8); Monocytes % (Auto) 12 % (0-12); Neutrophils # (Auto) 4.9 Thou/mm3 (1.8-7.7); Neutrophils % (Auto) 65 % (37-80); Nucleated Red Blood Cell % 0 /100 WBC (0); Platelet Count 121 Thou/mm3 (140-440); RDW Standard Deviation 64.5 fL (35.1-43.9); Red Blood Count 3.37 Miln/mm3 (4.50-5.90); White Blood Count 7.5 Thou/mm3 (3.8-10.6)
[2024-09-20 06:33] LABS: Alanine Aminotransferase 305 U/L (10-49); Albumin/Globulin Ratio 1.2 (1.2-2.2); Alkaline Phosphatase 449 U/L (46-116); Anion Gap 13 (7-16); Aspartate Amino Transferase 306 U/L (0-34); BUN/Creatinine Ratio 24 Ratio (12-20); Blood Urea Nitrogen 46 mg/dL (9-23); Calcium 8.8 mg/dL (8.3-10.6); Calcium (Corrected) 9.6 mg/dL (8.5-10.1); Carbon Dioxide 21.4 mMol/L (20.0-31.0); Chloride 110 mMol/L (98-107); Cholesterol 200 mg/dL (132-200); Creatinine (Component) 1.9 mg/dL (0.6-1.3); Estimated Creatinine Clearance 42.6 mL/min (>60); Globulin 2.6 gm/dL (2.3-3.5); Glucose 87 mg/dL (74-106); HDL Cholesterol < 10 mg/dL (40-60); LDL Cholesterol,Calculated 148 mg/dL (0-130); Magnesium 2.6 mg/dL (1.6-2.6); Osmolality,Calculated 297 (275-295); Phosphorous 3.3 mg/dL (2.4-5.1); Potassium 3.2 mMol/L (3.4-5.1); Sodium 144 mMol/L (136-145); Total Protein 5.6 gm/dL (5.7-8.2); Triglycerides 211 mg/dL (30-150); eGFR 37 See Note
[2024-09-20 07:06] LABS: Bilirubin,Total 26.9 mg/dL (0.3-1.2)
[2024-09-20] MEDS: PANTOPRAZOLE INJ 40 MG VIAL IVP (09:09)
[2024-09-20] MEDS: POTASSIUM CHLORIDE 20 mEq TABCR 40 MEQ PO (09:09)
[2024-09-20] MEDS: LACTULOSE SYRUP 20 GM/30 ML UDC 10 GM PO (09:09)
--- NOTE | 2024-09-20 10:52 | XR_ITS ---
Examination: Retroperitoneal ultrasound, complete Technique: Multiple high resolution grayscale images of the retroperitoneum obtained, including kidneys and bladder. Exam date and time:September 20, 2024 1232 hours INDICATIONS: Jaundice one month, liver failure diagnosis, also diagnosis acute renal failure on laboratory examination this week. FINDINGS: Right kidney 11.7 x 6.6 x 6.2 cm cortex 1.9 cm Left kidney 12.8 x 5.9 x 6.6 cm in the cortex 1.8 cm Mild left renal parenchymal scar formation No hydronephrosis No bladder mass or bladder calculi, bladder prevoid volume 336 cc unable to urinate IMPRESSION: Mild left renal parenchymal scar formation, no hydronephrosis
[2024-09-20] MEDS: SODIUM CHLORIDE 0.9% 1000 ML 1,000 ML 100 ML IV ×2 (11:19→20:58)
[2024-09-20] MEDS: predniSONE 20 MG TABLET PO (11:25)
--- NOTE | 2024-09-20 11:37 | PC.SS ---
Initial assessment: Patient is a 74 year old male admitted for SABINE and generalized weakness. Patient appeared alert and oriented. Patient confirmed home address to be [address] [place] [address]. Patient informs he lives at home with his , Anayeli Argueta. Patient informs he is able to transfer with some assistance. Patient denies home DME use. Patient informs his home is set up for handicapped needs. Patient states his PCP is Dr. Lay. Patient identified his , Anayeli as his alternate medical decision maker. Patient informs he would like to return home upon discharge and has family to assist with transportation home. D/c plan: home Next of kin: , Jesenia Argueta
--- NOTE | 2024-09-20 13:14 | ESPR_ITS ---
<Statement entered by Get Manzano MD - 09/20/24 14:24> I discussed with and supervised my co-resident involved in the care of this patient. I agree with the assessment and plan as documented above. Get Manzano,PGY-3 Disclaimer: Despite multiple revisions, due to the dictation software being used, the document below may not be free of grammatical errors including phonetic/typographic errors. However, this does not deter from our commitment to providing health care in the patient's best interest in mind. Documentation for date of: 09/20/24 Subjective Subjective Interval history: Patient was seen at bedside this morning. No overnight events. Patient's kidney function did slightly improved to creatinine of 1.9, will continue with IV fluids and IV albumin for now. Patient's liver enzymes did slightly decreased. Start patient back on prednisone 20 mg daily. Pending renal ultrasound and urine sodium and creatinine ordered by group marketing vp. No other complaints at this time. Exam Vital Signs Temp Pulse Resp BP Pulse Ox O2 Del Method 97.4 F 69 17 140/72 H 98 Room Air 09/20/24 12:00 09/20/24 12:00 09/20/24 12:00 09/20/24 12:00 09/20/24 12:00 09/20/24 12:00 Narrative Exam General: A/O x3, no acute distress Eyes: PERRL, EOMI. icteric, vision grossly intact. Ears: No ear pain, no ear discharge, Hearing grossly intact. Nose: No nasal discharge. Mouth/Throat: Dry mucous membranes, no redness, no lesions. Neck: Neck supple, non-tender, no cervical lymphadenopathy. Lungs: Clear DOMINIK to auscultation and percussion, No accessory muscle use. Cardio: Normal S1/S2, regular rhythm, systolic murmur, no JVD Abdomen: Soft, non-tender, no palpable masses, peristalsis present, no guarding or rebound. Positive for fluid wave. Extremities: Symmetrical, no significant deformities, 2+ peripheral edema , non-tender, peripheral pulses presents. Skin: No rashes, no lesions, warm to touch. Jaundice all throughout. Neuro: No focal neurological deficits. motor and sensory intact Psych: Cooperative, appropriate mood and effect. Objective Labs 09/24/24 05:30 09/24/24 05:30 Labs: Laboratory Results - last 24 hr 09/19/24 09/20/24 09/20/24 15:10 00:00 04:50 WBC 10.7 H 7.5 RBC 4.01 L 3.37 L Hgb 13.0 L 10.9 L D Hct 35.5 L 28.9 L MCV 89 86 MCH 32.4 32.3 MCHC 36.6 37.7 H RDW Std Deviation 67.8 H 64.5 H Plt Count 170 121 L D Neut % (Auto) 72 65 Lymph % (Auto) 13 19 [place] % (Auto) 11 12 Eos % (Auto) 1 3 Baso % (Auto) 1 1 Neut # (Auto) 7.7 4.9 Lymph # (Auto) 1.4 1.4 [place] # (Auto) 1.1 H 0.9 H Eos # (Auto) 0.1 0.2 Baso # (Auto) 0.1 0.1 Immature Gran # (Auto) 0.22 H 0.09 H Absolute Nucleated RBC 0.00 0.00 Immature Gran % 2 H 1 H Nucleated RBC % 0 0 PT 14.9 H INR 1.4 H APTT 30.9 Sodium 143 144 Potassium 3.4 3.2 L Chloride 108 H 110 H Carbon Dioxide 21.9 21.4 Anion Gap 13 13 BUN 52 H 46 H Creatinine 2.1 H D 1.9 H Estim Creat Clear Calc 38.7 L 42.6 L eGFR 33 L 37 L BUN/Creatinine Ratio 25 H 24 H Glucose 120 H 87 Calculated Osmolality 299 H 297 H Calcium 8.9 8.8 Corrected Calcium 9.7 9.6 Phosphorus 3.3 Magnesium 2.6 2.6 Total Bilirubin 27.9 H* 26.9 H* D AST 361 H 306 H ALT 373 H 305 H Alkaline Phosphatase 557 H 449 H D Ammonia 30 Lactate Dehydrogenase 338 H B-Natriuretic Peptide 38 Total Protein 6.2 5.6 L Albumin 3.0 L 3.0 L Globulin 3.2 2.6 Albumin/Globulin Ratio 0.9 L 1.2 Triglycerides 211 H Cholesterol 200 LDL Cholesterol, Calc 148 H HDL Cholesterol < 10 L Cholesterol/HDL Ratio 20.0 H TSH 2.00 Ur Collection Type Clean Catch Urine Color Drk-Yellow A Urine Clarity Clear Urine pH 5.5 Ur Specific [place] 1.015 Urine Protein Negative Urine Glucose (UA) Negative Urine Ketones Negative Urine Blood Negative Urine Nitrite Negative Urine Bilirubin 3+ A Urine Urobilinogen (Auto) 2.0 Ur Leukocyte Esterase Negative Urine RBC 1 Urine WBC 2 Ur Squamous Epith Cells 1 Urine Bacteria Rare Urine Opiates Screen Negative Urine Fentanyl Screen Negative Ur Barbiturates Screen Negative U Amphetamin/Meth Scrn Negative U Benzodiazepines Scrn Negative U Cocaine Metab Screen Negative U Marijuana (THC) Screen Negative Quality Measures Quality Measures none Advance care planning discussed with:: patient Assessment & Plan Assessment Current Active Medications: Generic Name Dose Route Start Last Admin Trade Name Freq PRN Reason Stop Dose Admin Acetaminophen 650 mg 09/20/24 10:19 Acetaminophen 325 Mg Tablet PO 10/19/24 17:22 Q6H PRN pain(1-3) and Fever >100.4 Hydrocodone Bitart/Acetaminophen 1 tab 09/19/24 17:23 Hydrocodone/Apap 5/325 Tablet PO 09/24/24 17:22 Q4HR PRN PAIN SCALE 4-6 (Moderate Albumin Human 25 gm in 100 mls @ 100 mls/hr 09/19/24 17:30 09/20/24 11:19 Albuminar-25 Ivpb IV 09/22/24 17:29 100 mls/hr QID HAILY Administration Sodium Chloride 1,000 mls @ 100 mls/hr 09/20/24 11:07 09/20/24 11:19 Ns IV 10/20/24 11:06 100 mls/hr .Q10H HAILY Administration Lactulose 10 gm 09/20/24 09:00 09/20/24 09:09 Lactulose Syrup 20 Gm/30 Ml Udc PO 10/20/24 08:59 10 gm QDAY HAILY Administration Protocol Ondansetron HCl 4 mg 09/19/24 17:23 Ondansetron Inj 2 Mg/Ml Inj 2 Ml IV 10/19/24 17:22 Q6H PRN NAUSEA OR VOMITING Protocol Pantoprazole Sodium 40 mg 09/19/24 17:30 09/20/24 09:09 Pantoprazole Inj 40 Mg Vial IVP 10/19/24 17:29 40 mg QDAY HAILY Administration Prednisone 20 mg 09/20/24 11:30 09/20/24 11:25 Prednisone 20 Mg Tablet PO 10/20/24 11:29 20 mg QDAY HAILY Administration Plan 74-year-old male with past medical history of alcohol cirrhosis, alcohol use disorder, rheumatoid arthritis, hypertension, spinal stenosis, and CVA was admitted to the hospital on 09/19/2024 for SABINE likely in the setting of poor oral intake versus hepatorenal in the setting of decompensated cirrhosis. #SABINE likely prerenal in the setting of #Poor oral intake #Decompensated cirrhosis #Hepatorenal syndrome? #Generalized weakness ?Patient came in with a creatinine of 2.1 and BUN of 52 ? Patient's base creatinine is around 1 with the most recent 1 being 1.3 on 09/08/2024 ?DDx SABINE likely prerenal in the setting of poor oral intake versus hepatorenal in the setting of decompensated cirrhosis ?MELD NA score of 3 points, 27 to 32% estimated mortality in 90 days ? Child-Hatfield score of 9 points, child class B, patient would benefit from liver transplant ?No suspicion for SBP now given the patient does not have any GI bleed - Creatinine 1.9, AST 306, ALT 305, ALP 449 today Plan: ? continue IV fluids ? Lactulose 10 g daily ? Albumin 25 g 4 times daily - Renal U/S ordered -Urine creatinine and sodium ordered ? Nephrology consulted, appreciate commendations ? GI consulted, appreciate recommendations ? Will continue to monitor #Coagulopathy #Hyperbilirubinemia #Transaminitis ? AST 361, ALT 373, alkaline phosphatase 557, T bilirubin 27.9 on admission ?PT 14.9 and INR 1.4 ? Most likely in the setting of decompensated cirrhosis Plan: ? Will continue to monitor #Hypoalbuminemia ? Albumin 3 on admission and 3 today Plan: ? Albumin 25 g 4 times daily #Mild leukocytosis, resolved ?Patient had WBC of 10.7 on admission, 7.5 today ? Likely reactive ? No fever or possible source of infection. Plan: ? Will continue to monitor #Normocytic normochromic anemia ?Hemoglobin 13 admission, 10.9 today ? Patient has a base hemoglobin of around 13.5 - Likely hemodilution Plan: ? Will transfuse hemoglobin less than 7 ? Will continue monitor #Hx of CVA ? Patient takes aspirin at home #Hx of HTN ? Will hold off on antihypertensive medications for now given possible hepatorenal syndrome. Disposition: Continue IV fluids, pending urine Na and Creat, pending renal US Diet: Renal GI prophylaxis: protonix DVT prophylaxis: SCDs Code: Full code Case disclosed with Attending Dr. Haddad and My senior Dr. Manzano PGY3. Paddy Mejia PGY1 Attending Provider Attestation/Addendum I have examined the patient, reviewed labs and imaging findings, discussed the case with the resident(s), and reviewed entered orders. I agree with the plan of care as outlined in this note, with these additional summaries/recommendations: Patient is a 74-year-old male with a medical history of primary hypertension and cirrhosis likely secondary to alcohol use presents to [facility] emergency department on 09/19/2024 with chief complaint of generalized weakness. In the emergency room patient was found to have decompensated cirrhosis and SABINE and thus hospitalist team was consulted for continuation of care. # Decompensated cirrhosis # Transaminitis Likely secondary to alcohol use Signs of synthetic liver dysfunction with coagulopathy, hyperbilirubinemia, and hypoalbuminemia Mild-NA score of 30 points indicating 27 to 32% estimated 90-day mortality Child Hatfield score is 9 points indicating child class B with abdominal surgery perioperative mortality of 30% Daily LFTs, platelet, INR, sodium Volume management: We will hold diuresis in the setting of possible hepatorenal syndrome Hepatic encephalopathy prevention: We will decrease lactulose dose and ammonia within normal limits on admission No more than 2 g Tylenol per day Low-sodium diet, fluid restriction Plan: Gastroenterology consulted, recommendations appreciated. Avoid hepatotoxic agents. # SABINE Etiology prerenal secondary to poor oral intake versus hepatorenal syndrome (type I: Rapidly progressive over days versus type II diuretic refractory ascites) On admission creatinine 2.1 and BUN 52. (Baseline Cr 1.3) Plan: Nephrology following. Minor improvement in renal function with creatinine to 1.9 from 2.1 with albumin challenge. If renal function does not continue to improve then we will discuss with nephrology about adding midodrine and octreotide. Repeat renal panel in AM. # Primary hypertension Plan: Hold home antihypertensives for now. Dr. Haddad
--- NOTE | 2024-09-20 13:20 | ESCONSULT_ITS ---
RE: JAY GRAYSON : 1950 DATE OF CONSULTATION: 09/20/2024 REASON FOR REFERRAL: Acute kidney injury. REFERRING PHYSICIAN: Dr. Dereck Mejia. HISTORY OF PRESENT ILLNESS: This patient is a 74-year-old gentleman with past medical history significant for CVA, hypertension, and recently diagnosed alcoholic liver cirrhosis who wasadmitted to the hospital yesterday with generalized weakness and poor oral intake. While in ED, he was found to be confused. Patient had a liver biopsy on 09/14/2024 and biopsy confirmed liver cirrhosis. The patient said that he never had any ascites; however, he has been jaundiced since a month ago. He is under the care of Dr. Barrow. He said that he already had an EGD in the past as well. His MRI of the abdomen revealed nodules which was biopsied as well and according to him, biopsy turned out benign. His creatinine upon admission was noted to be elevated too at 2.1. Prior to this admission, creatinine levels hover anywhere from 0.8 to 1.3. His creatinine level went down to 1.9. today after IV Fluid and IV albumin infusion.[place] [id number]. Once admitted, he was started on IV Albumin 25gms QID with IV Fluids. The patient is also on lactulose 10 grams p.o. daily. Since yesterday, the patient has made around 400 mL of urine and he said that he is still making some urine. He was noted to have an elevated total bilirubin as with a level at 27.9, which went down to 26.9 today. I was asked to see him as he developed acute kidney injury with diminished urine output. PAST MEDICAL HISTORY: As previously mentioned, hypertension, cerebrovascular accident with no residual deficit. ALLERGIES: NO KNOWN DRUG ALLERGIES. CURRENT MEDICATIONS: At home include, 1. Amlodipine 5 mg daily. 2. Aspirin 81 mg daily. 3. Losartan 100 mg daily. 4. Prednisone 40 mg daily. 5. Tizanidine 4 mg daily. Here, the patient is on, 1. Acetaminophen 650 mg p.o. q.6. 2. Albumin 25 grams q.i.d. 3. [place]. 4. Lactulose 10 grams p.o. daily 5. Normal saline 100 mL per hour. 6. Zofran 4 mg IV q.6. 7. Protonix 40 mg IV daily. 8. Potassium 40 mEq p.o. x1. PHYSICAL EXAMINATION: General: He is awake, alert, and oriented. Vital Signs: Blood pressure of 140/62. Heart rate of 78. Temperature 98. HEENT: Anicteric sclerae. Normocephalic. Neck: Supple. JVD. Chest and Lungs: Symmetrical expansion. Clear breath sounds. Cardiac: Without murmur. Abdomen: Soft. Extremities: No edema. LABORATORY DATA: Hemoglobin 10.9, WBC 7500, platelet count 121,000, INR 1.4, sodium 144, potassium 3.2, chloride 110, CO2 of 21.4, BUN 46, creatinine 1.9, AST 306, ALT 305, ammonia level 30, albumin 3. ASSESSMENT: 1. Nonoliguric acute kidney injury, most likely secondary to prerenal azotemia, possibly secondary to dehydration versus type 1 hepatorenal syndrome. 2. Alcoholic liver cirrhosis Without alcohol for 8 months now. 3. History of hypertension. 4. Multiple liver nodules, apparently benign. 5. Jaundice from liver cirrhosis. 6. Coagulopathy with hyperbilirubinemia. 7. Thrombocytopenia. PLAN: I agree with starting him on IV albumin 100 grams per day and IV fluids to rule out dehydration or volume depletion as a cause of his SABINE. Bilateral kidney US will also be obtained to rule out obstructive uropathy. Also, I will obtain a Fractional Excretion of sodium (FeNa). Although FeNa will be < 1 with pre renal but if after hydration FeNa is still < 1 then most likely it is Type 1 HRS. However, his UOP should be closely monitored too. If patient does not improve his kidney function with IV fluids and IV albumin, then we can try midodrine and octreotide 50 mcg per hour as this might be type 1 hepatorenal syndrome. He mentioned that there is a possibility of getting a liver transplant as he is getting ready for it. Patient who has hepatorenal syndrome usually is given priority for liver transplant. We may need to calculate his MELD score as well and see if he is a good candidate for liver transplant. However, I am not really sure if he was officially listed with a liver transplant center. I will monitor him very closely. Thank you for allowing me to precipitate in the care of this patient. DT: 11:19:22 TT: 13:18:00 Ref: [id number] - TID: [id number] MTDD
--- NOTE | 2024-09-20 21:20 | ESPR_ITS ---
Documentation for date of: 09/20/24 Subjective Subjective Interval history: Some improvement in kidney function at BUN of 46 and creatinine 1.9 Total bilirubin down to 26.9 On p.o. prednisone called [facility] Waiting for the response Exam Vital Signs Temp Pulse Resp BP Pulse Ox O2 Del Method 98.4 F 83 18 152/70 H 95 Room Air 09/20/24 20:00 09/20/24 20:00 09/20/24 20:00 09/20/24 20:00 09/20/24 20:00 09/20/24 20:00 Constitutional Comments: Icteric sclera and weak Routine Abdominal Exam Comments: Soft nontender Objective Labs 09/20/24 04:50 09/20/24 04:50 Labs: Laboratory Results - last 24 hr 09/20/24 09/20/24 00:00 04:50 WBC 7.5 RBC 3.37 L Hgb 10.9 L D Hct 28.9 L MCV 86 MCH 32.3 MCHC 37.7 H RDW Std Deviation 64.5 H Plt Count 121 L D Neut % (Auto) 65 Lymph % (Auto) 19 [place] % (Auto) 12 Eos % (Auto) 3 Baso % (Auto) 1 Neut # (Auto) 4.9 Lymph # (Auto) 1.4 [place] # (Auto) 0.9 H Eos # (Auto) 0.2 Baso # (Auto) 0.1 Immature Gran # (Auto) 0.09 H Absolute Nucleated RBC 0.00 Immature Gran % 1 H Nucleated RBC % 0 Sodium 144 Potassium 3.2 L Chloride 110 H Carbon Dioxide 21.4 Anion Gap 13 BUN 46 H Creatinine 1.9 H Estim Creat Clear Calc 42.6 L eGFR 37 L BUN/Creatinine Ratio 24 H Glucose 87 Calculated Osmolality 297 H Calcium 8.8 Corrected Calcium 9.6 Phosphorus 3.3 Magnesium 2.6 Total Bilirubin 26.9 H* D AST 306 H ALT 305 H Alkaline Phosphatase 449 H D Total Protein 5.6 L Albumin 3.0 L Globulin 2.6 Albumin/Globulin Ratio 1.2 Triglycerides 211 H Cholesterol 200 LDL Cholesterol, Calc 148 H HDL Cholesterol < 10 L Cholesterol/HDL Ratio 20.0 H TSH 2.00 Ur Collection Type Clean Catch Urine Color Drk-Yellow A Urine Clarity Clear Urine pH 5.5 Ur Specific [place] 1.015 Urine Protein Negative Urine Glucose (UA) Negative Urine Ketones Negative Urine Blood Negative Urine Nitrite Negative Urine Bilirubin 3+ A Urine Urobilinogen (Auto) 2.0 Ur Leukocyte Esterase Negative Urine RBC 1 Urine WBC 2 Ur Squamous Epith Cells 1 Urine Bacteria Rare Urine Opiates Screen Negative Urine Fentanyl Screen Negative Ur Barbiturates Screen Negative U Amphetamin/Meth Scrn Negative U Benzodiazepines Scrn Negative U Cocaine Metab Screen Negative U Marijuana (THC) Screen Negative Impressions Impression: # Acutely decompensated liver disease secondary to alcohol although patient has been abstinent for 8 months # SABINE improving Continue current management Call the and discussed the case Assessment & Plan A&P Narrative # Decompensated chronic liver disease with acute decompensation etiology previous consumption of alcohol although patient has not drank for 8 months # Worsening renal function patient may be going into hepatorenal syndrome # Weakness secondary to above Plan Admit the patient Supportive care I will speak with [facility] to see if the patient can be excepted in transfer for a liver transplant evaluation Otherwise his prognosis is very poor Thank you very much for the opportunity to participate in the care of this patient Time Spent With Patient Time: Total time spent is greater than 50% in coordination of care (as documented) at patient's floor/unit and/or counseling patient:
[2024-09-21] VITALS (10 sets, daily range): BP systolic 117–143; BP diastolic 52–71; PULSE 46–82; RESP 17–97; TEMP 36.2–37.3; O2SAT 94–97; BMI 15.0
--- NOTE | 2024-09-21 02:39 | PC.NURSE ---
Pt wants to leave AMA and is asking to talk to DR. Yu. Dr. Santiago was made aware.
--- NOTE | 2024-09-21 03:00 | PC.NURSE ---
Dr Santiago at bedside taking t0 pt.
[2024-09-21] MEDS: ALBUMIN HUMAN 25% IVPB 25 GM/100 ML BTL IV ×4 (05:39→20:33)
[2024-09-21 05:42] LABS: Basophils % (Auto) 0 % (0-2.5); Eosinophils # (Auto) 0.1 Thou/mm3 (0.0-0.5); Eosinophils % (Auto) 2 % (0-10); Hematocrit 25.9 % (41.0-53.0); Hemoglobin 9.5 g/dL (13.5-16.0); Immature Granulocytes % (Auto) 2 % (0-0); Immature Granulocytes Auto 0.09 Thou/mm3 (0.00-0.00); Lymphocytes # (Auto) 1.1 Thou/mm3 (1.0-4.8); Lymphocytes % (Auto) 18 % (10-50); Mean Corpuscular HGB Conc 36.7 g/dl (31.0-37.0); Mean Corpuscular Hemoglobin 32.8 pg (25.0-35.0); Mean Corpuscular Volume 89 fL (80-100); Monocytes # (Auto) 0.6 Thou/mm3 (0.0-0.8); Monocytes % (Auto) 10 % (0-12); Neutrophils % (Auto) 68 % (37-80); Nucleated Red Blood Cell % 0 /100 WBC (0); Platelet Count 86 Thou/mm3 (140-440); RDW Standard Deviation 68.4 fL (35.1-43.9)
[2024-09-21 06:46] LABS: Alanine Aminotransferase 234 U/L (10-49); Albumin, Serum 3.4 gm/dL (3.4-4.8); Albumin/Globulin Ratio 1.5 (1.2-2.2); Alkaline Phosphatase 369 U/L (46-116); Anion Gap 12 (7-16); Aspartate Amino Transferase 223 U/L (0-34); BUN/Creatinine Ratio 23 Ratio (12-20); Blood Urea Nitrogen 36 mg/dL (9-23); Calcium 8.9 mg/dL (8.3-10.6); Calcium (Corrected) 9.4 mg/dL (8.5-10.1); Carbon Dioxide 21.8 mMol/L (20.0-31.0); Chloride 111 mMol/L (98-107); Creatinine (Component) 1.6 mg/dL (0.6-1.3); Estimated Creatinine Clearance 49.8 mL/min (>60); Globulin 2.3 gm/dL (2.3-3.5); Glucose 99 mg/dL (74-106); Magnesium 2.4 mg/dL (1.6-2.6); Osmolality,Calculated 297 (275-295); Phosphorous 2.2 mg/dL (2.4-5.1); Potassium 3.2 mMol/L (3.4-5.1); Sodium 145 mMol/L (136-145); Total Protein 5.7 gm/dL (5.7-8.2); eGFR 45 See Note
[2024-09-21 06:49] LABS: Creatinine,Random Urine 76 mg/dL (30-125); Sodium,Urine Random 66.6 mMol/L (20.0-110.0)
[2024-09-21 07:22] LABS: Bilirubin,Total 28.9 mg/dL (0.3-1.2)
[2024-09-21] MEDS: LACTULOSE SYRUP 20 GM/30 ML UDC 10 GM PO (08:01)
[2024-09-21] MEDS: predniSONE 20 MG TABLET PO (08:01)
[2024-09-21] MEDS: PANTOPRAZOLE INJ 40 MG VIAL IVP (08:01)
[2024-09-21] MEDS: SODIUM CHLORIDE 0.9% 1000 ML 1,000 ML 100 ML IV ×2 (09:10→20:48)
[2024-09-21] MEDS: POTASSIUM PHOS 15 MMOL in SODIUM CHLORIDE 0.9% 250 ML 245 ML 62.5 MMOL IV (09:12)
--- NOTE | 2024-09-21 11:06 | ESPR_ITS ---
<Statement entered by Mohamud Linda MD - 09/26/24 07:58> I reviewed above note and agree with findings and plans. I have also personally examined the patient with medicine team and went over assessment and plan with medical team including news intern and resident physician. <Statement entered by Get Manzano MD - 09/21/24 13:33> Patient was examined bedside this morning, Dr. Barrow is trying to transfer him, his total billirubin is trending up at 28.9. His MELD NA today is 27 points , 19.6 % estimated 3- month mortilaty. he has poor progosis if he did't get transferd. pending GI reccs . I discussed with and supervised my co-resident involved in the care of this patient. I agree with the assessment and plan as documented above. Get Manzano,PGY-3 Disclaimer: Despite multiple revisions, due to the dictation software being used, the document below may not be free of grammatical errors including phonetic/typographic errors. However, this does not deter from our commitment to providing health care in the patient's best interest in mind. Documentation for date of: 09/21/24 Subjective Subjective Interval history: Patient was seen at bedside this morning. Patient's wanted patient to leave AMA last night, but night team spoke with the patient that he agreed to stay. Patient is SABINE is improved creatinine at 1.6 this morning, but his T bilirubin continues to uptrend and is currently at 28.9, given this we will speak with patient and GI about next steps in care. GI is still waiting to hear back from [facility] for possible transfer for liver transplant. No other complaints at this time. Exam Vital Signs Temp Pulse Resp BP Pulse Ox O2 Del Method 97.1 F 64 18 126/60 95 Room Air 09/21/24 08:00 09/21/24 08:00 09/21/24 08:00 09/21/24 08:00 09/21/24 08:00 09/21/24 08:00 Narrative Exam General: A/O x4, no acute distress Eyes: PERRL, EOMI. icteric, vision grossly intact. Ears: No ear pain, no ear discharge, Hearing grossly intact. Nose: No nasal discharge. Mouth/Throat: Dry mucous membranes, no redness, no lesions. Neck: Neck supple, non-tender, no cervical lymphadenopathy. Lungs: Clear DOMINIK to auscultation and percussion, No accessory muscle use. Cardio: Normal S1/S2, regular rhythm, systolic murmur, no JVD Abdomen: Soft, non-tender, no palpable masses, peristalsis present, no guarding or rebound. Positive for fluid wave. Extremities: Symmetrical, no significant deformities, 2+ peripheral edema , non-tender, peripheral pulses presents. Skin: No rashes, no lesions, warm to touch. Jaundice all throughout. Neuro: No focal neurological deficits. motor and sensory intact Psych: Cooperative, appropriate mood and effect. Objective Labs 09/21/24 05:29 09/21/24 05:29 Labs: Laboratory Results - last 24 hr 09/21/24 09/21/24 05:29 06:00 WBC 6.0 RBC 2.90 L Hgb 9.5 L Hct 25.9 L MCV 89 MCH 32.8 MCHC 36.7 RDW Std Deviation 68.4 H Plt Count 86 L D Neut % (Auto) 68 Lymph % (Auto) 18 [place] % (Auto) 10 Eos % (Auto) 2 Baso % (Auto) 0 Neut # (Auto) 4.0 Lymph # (Auto) 1.1 [place] # (Auto) 0.6 Eos # (Auto) 0.1 Baso # (Auto) 0.0 Immature Gran # (Auto) 0.09 H Absolute Nucleated RBC 0.00 Immature Gran % 2 H Nucleated RBC % 0 Sodium 145 Potassium 3.2 L Chloride 111 H Carbon Dioxide 21.8 Anion Gap 12 BUN 36 H Creatinine 1.6 H Estim Creat Clear Calc 49.8 L eGFR 45 L BUN/Creatinine Ratio 23 H Glucose 99 Calculated Osmolality 297 H Calcium 8.9 Corrected Calcium 9.4 Phosphorus 2.2 L Magnesium 2.4 Total Bilirubin 28.9 H* D AST 223 H ALT 234 H Alkaline Phosphatase 369 H D Total Protein 5.7 Albumin 3.4 Globulin 2.3 Albumin/Globulin Ratio 1.5 Ur Random Creatinine 76 Ur Random Sodium 66.6 Quality Measures Quality Measures none Advance care planning discussed with:: patient and child Assessment & Plan Assessment Current Active Medications: Generic Name Dose Route Start Last Admin Trade Name Freq PRN Reason Stop Dose Admin Acetaminophen 650 mg 09/20/24 10:19 Acetaminophen 325 Mg Tablet PO 10/19/24 17:22 Q6H PRN pain(1-3) and Fever >100.4 Hydrocodone Bitart/Acetaminophen 1 tab 09/19/24 17:23 Hydrocodone/Apap 5/325 Tablet PO 09/24/24 17:22 Q4HR PRN PAIN SCALE 4-6 (Moderate Albumin Human 25 gm in 100 mls @ 100 mls/hr 09/19/24 17:30 09/21/24 05:39 Albuminar-25 Ivpb IV 09/22/24 17:29 100 mls/hr QID HAILY Administration Sodium Chloride 1,000 mls @ 100 mls/hr 09/20/24 11:07 09/21/24 09:10 Ns IV 10/20/24 11:06 100 mls/hr .Q10H HAILY Administration Potassium Phosphate 15 mmol/ 250 mls @ 62.5 mls/hr 09/21/24 08:15 09/21/24 09:12 Sodium Chloride IV 09/21/24 12:14 62.5 mls/hr X1 ONE Administration Lactulose 10 gm 09/20/24 09:00 09/21/24 08:01 Lactulose Syrup 20 Gm/30 Ml Udc PO 10/20/24 08:59 10 gm QDAY HAILY Administration Protocol Ondansetron HCl 4 mg 09/19/24 17:23 Ondansetron Inj 2 Mg/Ml Inj 2 Ml IV 10/19/24 17:22 Q6H PRN NAUSEA OR VOMITING Protocol Pantoprazole Sodium 40 mg 09/19/24 17:30 09/21/24 08:01 Pantoprazole Inj 40 Mg Vial IVP 10/19/24 17:29 40 mg QDAY HAILY Administration Prednisone 20 mg 09/20/24 11:30 09/21/24 08:01 Prednisone 20 Mg Tablet PO 10/20/24 11:29 20 mg QDAY HAILY Administration Plan 74-year-old male with past medical history of alcohol cirrhosis, alcohol use disorder, rheumatoid arthritis, hypertension, spinal stenosis, and CVA was admitted to the hospital on 09/19/2024 for SABINE likely in the setting of poor oral intake versus hepatorenal in the setting of decompensated cirrhosis. #Decompensated cirrhosis #Coagulopathy #Hyperbilirubinemia #Transaminitis -Patient has a hx of cirrhosis and follow up outpatient with GI ?MELD NA score of 3 points, 27 to 32% estimated mortality in 90 days ? Child-Hatfield score of 9 points, child class B, patient would benefit from liver transplant ?No suspicion for SBP now given the patient does not have any GI bleed ? AST 361, ALT 373, alkaline phosphatase 557, T bilirubin 27.9 on admission ?PT 14.9 and INR 1.4 -T. Bilirubin continues to uptrend, currently at 28.9 -AST 223, ALT 234, ALP 369 today Plan: ? Lactulose 10 g daily - Discussing possible transfer ? GI consulted, appreciate recommendations ? Will continue to monitor #SABINE likely prerenal in the setting of #Poor oral intake #Generalized weakness ?Patient came in with a creatinine of 2.1 and BUN of 52 ? Patient's base creatinine is around 1 with the most recent 1 being 1.3 on 09/08/2024 ?DDx SABINE likely prerenal in the setting of poor oral intake versus hepatorenal in the setting of decompensated cirrhosis - Creatinine 1.6 today Plan: ? continue IV fluids ? Albumin 25 g 4 times daily ? Nephrology consulted, appreciate commendations ? Will continue to monitor #Hypoalbuminemia ? Albumin 3 on admission and 3.4 today Plan: ? Albumin 25 g 4 times daily #Mild leukocytosis, resolved ?Patient had WBC of 10.7 on admission, 6 today ? Likely reactive ? No fever or possible source of infection. Plan: ? Will continue to monitor #Normocytic normochromic anemia ?Hemoglobin 13 admission, 9.5 today ? Patient has a base hemoglobin of around 13.5 - Likely hemodilution as he continues on Iv fluids Plan: ? Will transfuse hemoglobin less than 7 ? Will continue monitor #Hx of CVA ? Patient takes aspirin at home #Hx of HTN ? Will hold off on antihypertensive medications for now given possible hepatorenal syndrome. Disposition: Continue IV fluids, pending possible transfer Diet: Renal GI prophylaxis: protonix DVT prophylaxis: SCDs Code: Full code Case disclosed with Attending Dr. Linda and My senior Dr. Manzano PGY3. Paddy Mejia PGY1
--- NOTE | 2024-09-21 12:55 | ESPR_ITS ---
Documentation for date of: 09/21/24 Subjective Subjective Interval history: Patient evaluated BUN/creatinine improved to 36 and 1.6 Total bilirubin up at 28.9 Exam Vital Signs Temp Pulse Resp BP Pulse Ox O2 Del Method 97.1 F 64 18 126/60 95 Room Air 09/21/24 08:00 09/21/24 08:00 09/21/24 08:00 09/21/24 08:00 09/21/24 08:00 09/21/24 08:00 Objective Labs 09/21/24 05:29 09/21/24 05:29 Labs: Laboratory Results - last 24 hr 09/21/24 09/21/24 05:29 06:00 WBC 6.0 RBC 2.90 L Hgb 9.5 L Hct 25.9 L MCV 89 MCH 32.8 MCHC 36.7 RDW Std Deviation 68.4 H Plt Count 86 L D Neut % (Auto) 68 Lymph % (Auto) 18 [place] % (Auto) 10 Eos % (Auto) 2 Baso % (Auto) 0 Neut # (Auto) 4.0 Lymph # (Auto) 1.1 [place] # (Auto) 0.6 Eos # (Auto) 0.1 Baso # (Auto) 0.0 Immature Gran # (Auto) 0.09 H Absolute Nucleated RBC 0.00 Immature Gran % 2 H Nucleated RBC % 0 Sodium 145 Potassium 3.2 L Chloride 111 H Carbon Dioxide 21.8 Anion Gap 12 BUN 36 H Creatinine 1.6 H Estim Creat Clear Calc 49.8 L eGFR 45 L BUN/Creatinine Ratio 23 H Glucose 99 Calculated Osmolality 297 H Calcium 8.9 Corrected Calcium 9.4 Phosphorus 2.2 L Magnesium 2.4 Total Bilirubin 28.9 H* D AST 223 H ALT 234 H Alkaline Phosphatase 369 H D Total Protein 5.7 Albumin 3.4 Globulin 2.3 Albumin/Globulin Ratio 1.5 Ur Random Creatinine 76 Ur Random Sodium 66.6 Impressions Impression: # Acutely decompensated chronic liver disease secondary to alcohol patient has been abstinent for months # SABINE improving Awaiting response from [facility] Assessment & Plan A&P Narrative # Decompensated chronic liver disease with acute decompensation etiology previous consumption of alcohol although patient has not drank for 8 months # Worsening renal function patient may be going into hepatorenal syndrome # Weakness secondary to above Plan Admit the patient Supportive care I will speak with [facility] to see if the patient can be excepted in transfer for a liver transplant evaluation Otherwise his prognosis is very poor Thank you very much for the opportunity to participate in the care of this patient Time Spent With Patient Time: Total time spent is greater than 50% in coordination of care (as documented) at patient's floor/unit and/or counseling patient:
--- NOTE | 2024-09-21 14:41 | PC.SS ---
Rounding note: patient tried leaving AMA. Dr. Barrow following the case.
--- NOTE | 2024-09-21 17:14 | PC.NURSE ---
Md notified pt with HR dropping to 43 but does not sustain. Has been sinus clovis with occasional PVCs. Patient in no distress is attempting to take a nap. MD states will review, no new orders at this time.
--- NOTE | 2024-09-21 17:21 | EKG_ITS ---
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
--- NOTE | 2024-09-21 17:28 | PC.NURSE ---
Dr. Barrow in to see pt.
[2024-09-22] VITALS (9 sets, daily range): BP systolic 131–156; BP diastolic 65–94; PULSE 56–72; RESP 15–96; TEMP 36.3–37; O2SAT 94–96
[2024-09-22] MEDS: ALBUMIN HUMAN 25% IVPB 25 GM/100 ML BTL IV ×3 (05:47→16:35)
[2024-09-22 06:11] LABS: Basophils % (Auto) 1 % (0-2.5); Eosinophils # (Auto) 0.1 Thou/mm3 (0.0-0.5); Eosinophils % (Auto) 2 % (0-10); Immature Granulocytes % (Auto) 1 % (0-0); Immature Granulocytes Auto 0.07 Thou/mm3 (0.00-0.00); Lymphocytes # (Auto) 0.9 Thou/mm3 (1.0-4.8); Lymphocytes % (Auto) 17 % (10-50); Mean Corpuscular Hemoglobin 32.4 pg (25.0-35.0); Mean Corpuscular Volume 90 fL (80-100); Monocytes # (Auto) 0.5 Thou/mm3 (0.0-0.8); Monocytes % (Auto) 10 % (0-12); Neutrophils # (Auto) 3.8 Thou/mm3 (1.8-7.7); Neutrophils % (Auto) 71 % (37-80); Nucleated Red Blood Cell % 0 /100 WBC (0); Platelet Count 93 Thou/mm3 (140-440); RDW Standard Deviation 71.3 fL (35.1-43.9); Red Blood Count 2.78 Miln/mm3 (4.50-5.90); White Blood Count 5.3 Thou/mm3 (3.8-10.6)
[2024-09-22 07:07] LABS: Alanine Aminotransferase 197 U/L (10-49); Albumin, Serum 3.8 gm/dL (3.4-4.8); Albumin/Globulin Ratio 1.8 (1.2-2.2); Alkaline Phosphatase 331 U/L (46-116); Anion Gap 12 (7-16); Aspartate Amino Transferase 183 U/L (0-34); BUN/Creatinine Ratio 22 Ratio (12-20); Blood Urea Nitrogen 33 mg/dL (9-23); Calcium 9.2 mg/dL (8.3-10.6); Calcium (Corrected) 9.4 mg/dL (8.5-10.1); Carbon Dioxide 21.1 mMol/L (20.0-31.0); Chloride 114 mMol/L (98-107); Creatinine (Component) 1.5 mg/dL (0.6-1.3); Estimated Creatinine Clearance 53.1 mL/min (>60); Globulin 2.1 gm/dL (2.3-3.5); Glucose 100 mg/dL (74-106); Magnesium 2.2 mg/dL (1.6-2.6); Osmolality,Calculated 299 (275-295); Phosphorous 2.4 mg/dL (2.4-5.1); Potassium 3.6 mMol/L (3.4-5.1); Sodium 147 mMol/L (136-145); Total Protein 5.9 gm/dL (5.7-8.2); eGFR 49 See Note
[2024-09-22] MEDS: POTASSIUM CHLORIDE 20 mEq TABCR PO (08:23)
[2024-09-22] MEDS: predniSONE 20 MG TABLET PO (08:23)
[2024-09-22] MEDS: LACTULOSE SYRUP 20 GM/30 ML UDC 10 GM PO (08:24)
[2024-09-22] MEDS: PANTOPRAZOLE INJ 40 MG VIAL IVP (08:24)
[2024-09-22] MEDS: SODIUM CHLORIDE 0.9% 1000 ML 1,000 ML 100 ML IV ×2 (08:26→18:20)
--- NOTE | 2024-09-22 11:14 | ESPR_ITS ---
<Statement entered by Mohamud Linda MD - 09/27/24 12:10> I reviewed above note and agree with findings and plans. I have also personally examined the patient with medicine team and went over assessment and plan with medical team including internet webmaster and resident physician. Documentation for date of: 09/22/24 Subjective Subjective Interval history: Patient was seen at bedside this morning. No overnight events. Patient's heart rate has been in the 60s to 70s and EKG done yesterday showed first-degree AV block. Patient was asymptomatic from no chest pain, shortness of breath. Patient was explained that his C bilirubin continues to uptrend and is currently at 31, him and his had questions about possible transfer to our liver transplant. It was explained to them that given his age and multiple comorbidities we will be difficult to get a transplant, but we will defer to GI specialist at this time. Given patient's poor prognosis which was explained to patient and his hospice was explained to them as an option and they stated that they would like to think about it as they might need some help with the patient once he gets discharged. Exam Vital Signs Temp Pulse Resp BP Pulse Ox O2 Del Method 98.6 F 69 17 139/71 H 96 Room Air 09/22/24 08:00 09/22/24 08:00 09/22/24 08:00 09/22/24 08:00 09/22/24 08:00 09/22/24 08:00 Narrative Exam General: A/O x4, no acute distress Eyes: PERRL, EOMI. icteric, vision grossly intact. Ears: No ear pain, no ear discharge, Hearing grossly intact. Nose: No nasal discharge. Mouth/Throat: Dry mucous membranes, no redness, no lesions. Neck: Neck supple, non-tender, no cervical lymphadenopathy. Lungs: Clear DOMINIK to auscultation and percussion, No accessory muscle use. Cardio: Normal S1/S2, regular rhythm, systolic murmur, no JVD Abdomen: Soft, non-tender, no palpable masses, peristalsis present, no guarding or rebound. Positive for fluid wave. Extremities: Symmetrical, no significant deformities, 2+ peripheral edema , non-tender, peripheral pulses presents. Skin: No rashes, no lesions, warm to touch. Jaundice all throughout. Neuro: No focal neurological deficits. motor and sensory intact Psych: Cooperative, appropriate mood and effect. Objective Labs 09/22/24 05:05 09/22/24 05:05 Labs: Laboratory Results - last 24 hr 09/22/24 05:05 WBC 5.3 RBC 2.78 L Hgb 9.0 L Hct 25.0 L MCV 90 MCH 32.4 MCHC 36.0 RDW Std Deviation 71.3 H Plt Count 93 L Neut % (Auto) 71 Lymph % (Auto) 17 [place] % (Auto) 10 Eos % (Auto) 2 Baso % (Auto) 1 Neut # (Auto) 3.8 Lymph # (Auto) 0.9 L [place] # (Auto) 0.5 Eos # (Auto) 0.1 Baso # (Auto) 0.0 Immature Gran # (Auto) 0.07 H Absolute Nucleated RBC 0.00 Immature Gran % 1 H Nucleated RBC % 0 Sodium 147 H Potassium 3.6 Chloride 114 H Carbon Dioxide 21.1 Anion Gap 12 BUN 33 H Creatinine 1.5 H Estim Creat Clear Calc 53.1 L eGFR 49 L BUN/Creatinine Ratio 22 H Glucose 100 Calculated Osmolality 299 H Calcium 9.2 Corrected Calcium 9.4 Phosphorus 2.4 Magnesium 2.2 Total Bilirubin 31.0 H* D AST 183 H ALT 197 H Alkaline Phosphatase 331 H D Total Protein 5.9 Albumin 3.8 Globulin 2.1 L Albumin/Globulin Ratio 1.8 Quality Measures Quality Measures none Advance care planning discussed with:: patient and spouse Assessment & Plan Assessment Current Active Medications: Generic Name Dose Route Start Last Admin Trade Name Freq PRN Reason Stop Dose Admin Acetaminophen 650 mg 09/20/24 10:19 Acetaminophen 325 Mg Tablet PO 10/19/24 17:22 Q6H PRN pain(1-3) and Fever >100.4 Hydrocodone Bitart/Acetaminophen 1 tab 09/19/24 17:23 Hydrocodone/Apap 5/325 Tablet PO 09/24/24 17:22 Q4HR PRN PAIN SCALE 4-6 (Moderate Albumin Human 25 gm in 100 mls @ 100 mls/hr 09/19/24 17:30 09/22/24 05:47 Albuminar-25 Ivpb IV 09/22/24 17:29 100 mls/hr QID HAIYL Administration Sodium Chloride 1,000 mls @ 100 mls/hr 09/20/24 11:07 09/22/24 08:26 Ns IV 10/20/24 11:06 100 mls/hr .Q10H HAILY Administration Lactulose 10 gm 09/20/24 09:00 09/22/24 08:24 Lactulose Syrup 20 Gm/30 Ml Udc PO 10/20/24 08:59 10 gm QDAY HAILY Administration Protocol Ondansetron HCl 4 mg 09/19/24 17:23 Ondansetron Inj 2 Mg/Ml Inj 2 Ml IV 10/19/24 17:22 Q6H PRN NAUSEA OR VOMITING Protocol Pantoprazole Sodium 40 mg 09/19/24 17:30 09/22/24 08:24 Pantoprazole Inj 40 Mg Vial IVP 10/19/24 17:29 40 mg QDAY HAILY Administration Prednisone 20 mg 09/20/24 11:30 09/22/24 08:23 Prednisone 20 Mg Tablet PO 10/20/24 11:29 20 mg QDAY HAILY Administration Plan 74-year-old male with past medical history of alcohol cirrhosis, alcohol use disorder, rheumatoid arthritis, hypertension, spinal stenosis, and CVA was admitted to the hospital on 09/19/2024 for SABINE likely in the setting of poor oral intake versus hepatorenal in the setting of decompensated cirrhosis. #Decompensated cirrhosis #Coagulopathy #Hyperbilirubinemia #Transaminitis -Patient has a hx of cirrhosis and follow up outpatient with GI ?MELD NA score of 3 points, 27 to 32% estimated mortality in 90 days ? Child-Hatfield score of 9 points, child class B, patient would benefit from liver transplant ?No suspicion for SBP now given the patient does not have any GI bleed ? AST 361, ALT 373, alkaline phosphatase 557, T bilirubin 27.9 on admission ?PT 14.9 and INR 1.4 -T. Bilirubin continues to uptrend, currently at 31 -AST 183, ALT 197, ALP 331 today Plan: ? Lactulose 10 g daily - Pending decision on hospice ? GI consulted, appreciate recommendations ? Will continue to monitor #SABINE likely prerenal in the setting of #Poor oral intake #Generalized weakness ?Patient came in with a creatinine of 2.1 and BUN of 52 ? Patient's base creatinine is around 1 with the most recent 1 being 1.3 on 09/08/2024 ?DDx SABINE likely prerenal in the setting of poor oral intake versus hepatorenal in the setting of decompensated cirrhosis - Creatinine 1.5 today Plan: ? continue IV fluids ? Albumin 25 g 4 times daily ? Nephrology consulted, appreciate commendations ? Will continue to monitor #Hypoalbuminemia ? Albumin 3 on admission and 3.8 today Plan: ? Albumin 25 g 4 times daily #Mild leukocytosis, resolved ?Patient had WBC of 10.7 on admission, 5.3 today ? Likely reactive ? No fever or possible source of infection. Plan: ? Will continue to monitor #Normocytic normochromic anemia ?Hemoglobin 13 admission, 9 today ? Patient has a base hemoglobin of around 13.5 - Likely hemodilution as he continues on Iv fluids Plan: ? Will transfuse hemoglobin less than 7 ? Will continue monitor #Hx of CVA ? Patient takes aspirin at home #Hx of HTN ? Will hold off on antihypertensive medications for now given possible hepatorenal syndrome. Disposition: Continue IV fluids, pending GI recs and decision on hospice. Diet: Renal GI prophylaxis: protonix DVT prophylaxis: SCDs Code: Full code Case disclosed with Attending Dr. Linda and My senior Dr. Maravilla PGY2. Paddy Mejia PGY1 Senior Resident Attestation: The patient is a 74-year-old male with significant past medical history of alcoholic liver cirrhosis, alcohol use disorder, rheumatoid arthritis, hypertension, spinal stenosis and CVA presented to ED with chief complaint of worsening kidney function. The patient reported that he has been doing okay this morning. His vitals were fairly stable. Labs are significant for slowly trending down his creatinine to 1.5, but continuously rising total bilirubin to 31.0 this morning. Physical exam was significant for severe icterus throughout the body, and 2+ peripheral edema. We will continue the patient on albumin 25 g 4 times daily, and continue to monitor his bilirubin level. We will encourage the patient to take oral IV fluids. GI Dr. Barrow is working for transfer to hepatic transplant center. I discussed with and supervised the internet webmaster physician involved in the care of this patient. I personally saw and examined the patient and discussed the assessment and plan with the entire medicine team, including my attending. I agree with the assessment and plan as documented above. Dante Maravilla MD PGY2 Internal Medicine
[2024-09-22] MEDS: SIMETHICONE 80 MG CHEW PO (20:42)
--- NOTE | 2024-09-22 20:58 | PD.IMPROG ---
Documentation for date of: 09/22/24 Subjective Subjective Interval history: Left a message for Dr. Bishop Kowalski MD Transplant surgeon at [facility] liver transplant program Waiting for his response I will speak with the management coordinator tomorrow Without the liver transplant his prognosis is very dismal Age may be a factor in deciding liver transplant although his other medical conditions are very manageable for the transplant MELD score is around 30 Exam Vital Signs Temp Pulse Resp BP Pulse Ox O2 Del Method 98.1 F 63 19 138/65 H 95 Room Air 09/22/24 20:00 09/22/24 20:00 09/22/24 20:00 09/22/24 20:00 09/22/24 20:00 09/22/24 20:00 Objective Labs 09/22/24 05:05 09/22/24 05:05 Labs: Laboratory Results - last 24 hr 09/22/24 05:05 WBC 5.3 RBC 2.78 L Hgb 9.0 L Hct 25.0 L MCV 90 MCH 32.4 MCHC 36.0 RDW Std Deviation 71.3 H Plt Count 93 L Neut % (Auto) 71 Lymph % (Auto) 17 [place] % (Auto) 10 Eos % (Auto) 2 Baso % (Auto) 1 Neut # (Auto) 3.8 Lymph # (Auto) 0.9 L [place] # (Auto) 0.5 Eos # (Auto) 0.1 Baso # (Auto) 0.0 Immature Gran # (Auto) 0.07 H Absolute Nucleated RBC 0.00 Immature Gran % 1 H Nucleated RBC % 0 Sodium 147 H Potassium 3.6 Chloride 114 H Carbon Dioxide 21.1 Anion Gap 12 BUN 33 H Creatinine 1.5 H Estim Creat Clear Calc 53.1 L eGFR 49 L BUN/Creatinine Ratio 22 H Glucose 100 Calculated Osmolality 299 H Calcium 9.2 Corrected Calcium 9.4 Phosphorus 2.4 Magnesium 2.2 Total Bilirubin 31.0 H* D AST 183 H ALT 197 H Alkaline Phosphatase 331 H D Total Protein 5.9 Albumin 3.8 Globulin 2.1 L Albumin/Globulin Ratio 1.8 Impressions Impression: # Acutely decompensated chronic liver disease last alcoholic drink 8 months ago # Improving renal functions Will continue to press on for a possible evaluation for liver transplant at [facility] Assessment & Plan A&P Narrative # Decompensated chronic liver disease with acute decompensation etiology previous consumption of alcohol although patient has not drank for 8 months # Worsening renal function patient may be going into hepatorenal syndrome # Weakness secondary to above Plan Admit the patient Supportive care I will speak with [facility] to see if the patient can be excepted in transfer for a liver transplant evaluation Otherwise his prognosis is very poor Thank you very much for the opportunity to participate in the care of this patient Time Spent With Patient Time: Total time spent is greater than 50% in coordination of care (as documented) at patient's floor/unit and/or counseling patient:
[2024-09-23] VITALS (8 sets, daily range): BP systolic 134–158; BP diastolic 57–83; PULSE 60–82; RESP 16–18; TEMP 36.4–36.8; O2SAT 94–97; BMI 14.0
[2024-09-23] MEDS: SODIUM CHLORIDE 0.9% 1000 ML 1,000 ML 100 ML IV ×2 (04:59→15:13)
[2024-09-23 09:22] LABS: Basophils % (Auto) 1 % (0-2.5); Eosinophils # (Auto) 0.1 Thou/mm3 (0.0-0.5); Eosinophils % (Auto) 2 % (0-10); Hematocrit 25.9 % (41.0-53.0); Hemoglobin 9.5 g/dL (13.5-16.0); Immature Granulocytes % (Auto) 2 % (0-0); Immature Granulocytes Auto 0.09 Thou/mm3 (0.00-0.00); Lymphocytes # (Auto) 1.1 Thou/mm3 (1.0-4.8); Lymphocytes % (Auto) 18 % (10-50); Mean Corpuscular HGB Conc 36.7 g/dl (31.0-37.0); Mean Corpuscular Volume 90 fL (80-100); Monocytes # (Auto) 0.6 Thou/mm3 (0.0-0.8); Monocytes % (Auto) 10 % (0-12); Neutrophils # (Auto) 4.1 Thou/mm3 (1.8-7.7); Neutrophils % (Auto) 68 % (37-80); Nucleated Red Blood Cell % 0 /100 WBC (0); Platelet Count 86 Thou/mm3 (140-440); RDW Standard Deviation 74.9 fL (35.1-43.9); Red Blood Count 2.88 Miln/mm3 (4.50-5.90)
--- NOTE | 2024-09-23 09:31 | PC.NURSE ---
Received a call from Dr Barrow, he stated pt accepted to [facility] Liver Transplant Team, Dr Dex Colin accepted pt, requested Dr Maravilla call him right away, informed Dr Maravilla to call Dr Barrow, informed Silvestre transfer and pumphouse operator Rn of transfer orders, willawait any new orders.
--- NOTE | 2024-09-23 09:38 | PC.CM ---
Addendum entered by Lm Sher RN 09/23/24 13:03: Transfer back agreement received, signed and faxed back to [facility] fax # [phone] Addendum entered by Lm Sher RN 09/23/24 12:49: Received call from Gardenia at [facility], Transplant team, patient has been accepted by Dr. Miguel Krishna pending financials. They have spoken to Dr. Barrow and made him aware of their acceptance. TC RN will update Charge Nurse Fozia and patient. Addendum entered by Lm Sher RN 09/23/24 11:52: Spoke to Gardenia at [facility] transplant team, she requested additional imaging reports, they were sent via [facility] fax. Addendum entered by Lm Sher RN 09/23/24 10:06: [id number] placed to [facility] transfer center, spoke with Jane at [facility] supply chain coordinator, provided clinical update and contact information for Dr. Barrow and transfer RN here at [facility]. She will present clinical information to the transplant team and call back with any further requests and to provide update. Images placed on CD and placed in transfer packet. Original Note: Received call from Charge Nurse Fozia Blankenship to request transfer per Dr. Barrow, he has spoken to Dr. Dashawn Colin on the liver transplant team at [facility] and he would be willing to accept patient. Transfer packet started and clinicals faxed to [facility] transfer center.
[2024-09-23] MEDS: PANTOPRAZOLE INJ 40 MG VIAL IVP (09:39)
[2024-09-23] MEDS: predniSONE 20 MG TABLET PO (09:39)
[2024-09-23] MEDS: LACTULOSE SYRUP 20 GM/30 ML UDC 10 GM PO (09:40)
[2024-09-23 09:41] LABS: INR 1.9 (0.9-1.3); Partial Thromboplastin Time 42.1 Seconds (22.0-36.0); Prothrombin Time 19.8 Seconds (9.0-12.2)
[2024-09-23 10:01] LABS: Alanine Aminotransferase 174 U/L (10-49); Albumin, Serum 3.9 gm/dL (3.4-4.8); Albumin/Globulin Ratio 1.8 (1.2-2.2); Alkaline Phosphatase 320 U/L (46-116); Anion Gap 12 (7-16); Aspartate Amino Transferase 173 U/L (0-34); BUN/Creatinine Ratio 24 Ratio (12-20); Blood Urea Nitrogen 34 mg/dL (9-23); Calcium 9.2 mg/dL (8.3-10.6); Calcium (Corrected) 9.3 mg/dL (8.5-10.1); Carbon Dioxide 20.1 mMol/L (20.0-31.0); Chloride 115 mMol/L (98-107); Creatinine (Component) 1.4 mg/dL (0.6-1.3); Estimated Creatinine Clearance 56.9 mL/min (>60); Globulin 2.2 gm/dL (2.3-3.5); Glucose 89 mg/dL (74-106); Osmolality,Calculated 299 (275-295); Potassium 3.4 mMol/L (3.4-5.1); Sodium 147 mMol/L (136-145); Total Protein 6.1 gm/dL (5.7-8.2); eGFR 53 See Note
--- NOTE | 2024-09-23 10:04 | ESDS_ITS ---
<Statement entered by Mohamud Linda MD - 09/27/24 12:15> I reviewed above note and agree with findings and plans. I have also personally examined the patient with medicine team and went over assessment and plan with medical team including international marketing specialist and resident physician. Planned Discharge Date 09/23/24 DS: Providers Provider Date of admission: 09/20/24 09:40 Primary care physician: Emi Cook PA-C Admitting Provider: Paddy Mejia MD Attending Provider on Admission: Mohamud Linda MD Consults: 09/19/24 16:34 Consult to Gastroenterology Stat Comment: Consulting Provider: Angelo Barrow 09/19/24 17:32 Consult to Nephrology Routine Comment: Consulting Provider: Linda Yu 09/19/24 21:59 Referral Registered Dietitian Stat Comment: 09/20/24 11:17 Referral Physical Therapy Routine Comment: Physician Instructions: Attending Provider on DC: Mohamud Linda MD Discharging Provider: Mohamud Linda MD DS: Diagnosis Problem List Completed Was Problem List Reviewed/Reconciled?: Yes Hospital Course Hospital Course Hospital course: 74-year-old male with past medical history of alcohol cirrhosis, alcohol use disorder, rheumatoid arthritis, hypertension, spinal stenosis, and CVA was admitted to the hospital on 09/19/2024 for SABINE likely in the setting of poor oral intake. In the ED came with complaints of generalized weakness. Initially patient was afebrile and normotensive. Initial labs were relevant for mild leukocytosis (10.7), normocytic normochromic anemia (Hgb 13.0), coagulopathy (PT 14.9 and INR 1.4), SABINE (BUN 52 and creatinine 2.1), hyperbilirubinemia (27.9), transaminitis (AST 361/ALT 373/alkaline phosphatase 557), elevated lactate dehydrogenase 338, and hypoalbuminemia (3). There was some no initial imaging at this time. Nephrology and GI were consulted during the patient's hospital stay. Nephrology recommended to treat patient with IV albumin as well as IV fluids due to his SABINE likely in the setting of poor oral intake. Throughout his hospital stay his kidney function improved steadily. GI specialist wanted to transfer patient to higher center of care for liver transplant evaluation. During the hospital stay patient's kidney function improved, but his T bilirubin continued to uptrend. His MELD NA score was 30 indicating a 27 to 32% of estimated mortality in 90 days and his child Hatfield score of 9 points. Patient has been alcohol free for the last 8 months. At the time of transfer patient was stable enough to be transferred. Discharge Plan: Transfer to higher care Problem list: #Decompensated cirrhosis #Coagulopathy #Hyperbilirubinemia #Transaminitis #SABINE likely prerenal in the setting of #Poor oral intake #Generalized weakness #Hypoalbuminemia #Mild leukocytosis, resolved #Normocytic normochromic anemia #Hx of CVA #Hx of HTN Case disclosed with Attending Dr. Linda and My senior Dr. Maravilla PGY2. Paddy Mejia PGY1 Senior Resident Attestation: I discussed with and supervised the international marketing specialist physician involved in the care of this patient. I personally saw and examined the patient and discussed the assessment and plan with the entire medicine team, including my attending. I agree with the discharge plan as documented above. Dante Maravilla MD PGY2 Internal Medicine Time Spent with Patient Time attestation: Total time spent providing and/or coordinating discharge services: Greater than 35 minutes Exam Vital Signs Temp Pulse Resp BP Pulse Ox O2 Del Method 97.8 F 82 16 155/83 H 97 Room Air 09/23/24 08:00 09/23/24 08:00 09/23/24 08:00 09/23/24 08:00 09/23/24 08:00 09/23/24 08:00 Narrative Exam General: A/O x4, no acute distress Eyes: PERRL, EOMI. icteric, vision grossly intact. Ears: No ear pain, no ear discharge, Hearing grossly intact. Nose: No nasal discharge. Mouth/Throat: Dry mucous membranes, no redness, no lesions. Neck: Neck supple, non-tender, no cervical lymphadenopathy. Lungs: Clear DOMINIK to auscultation and percussion, No accessory muscle use. Cardio: Normal S1/S2, regular rhythm, systolic murmur, no JVD Abdomen: Soft, non-tender, no palpable masses, peristalsis present, no guarding or rebound. Positive for fluid wave. Extremities: Symmetrical, no significant deformities, 2+ peripheral edema , non-tender, peripheral pulses presents. Skin: No rashes, no lesions, warm to touch. Jaundice all throughout. Neuro: No focal neurological deficits. motor and sensory intact Psych: Cooperative, appropriate mood and effect. Discharge Plan Plan Patient Disposition: [facility] Other Facility Pt Being Transferred to: [facility] Service Needed for Transfer: Liver transplant Disposition Comment: Dr. Kowalski already aware of the situation Prescriptions/Referrals Prescriptions/Med Rec: Continued tizanidine 4 mg tablet 4 mg PO HS Hold Instructions: Resume on 01/06/24. Patient Comments: TAKE 1 TABLET BY MOUTH THREE TIMES A DAY NEEDED FOR 10 DAYS amlodipine 5 mg tablet 5 mg PO QDAY aspirin 81 mg Capsule 81 mg PO QDAY Hold Instructions: Resume on 09/16/24. Resume aspirin on thursday09/16/24 Changed prednisone 10 mg Tablet 20 mg PO QDAY Qty: 20 0RF Rx Instructions: total of 20mg daily in divided doses Discontinued losartan 100 mg tablet 100 mg PO QDAY Patient Comments: TAKE 1 TABLET BY MOUTH EVERY DAY No Action cimetidine 400 mg tablet 400 mg PO HS Patient Comments: TAKE 1 TABLET BY MOUTH NIGHTLY AT BEDTIME pantoprazole 40 mg tablet,delayed release (DR/EC) 40 mg PO ACBR Patient Comments: TAKE 1 TABLET 1/2 TO 1 HOUR BEFORE MORNING MEAL ORALLY ONCE A DAY 30 DAYS hydrochlorothiazide 12.5 mg capsule 12.5 mg PO QDAY Patient Comments: TAKE 1 CAPSULE BY MOUTH EVERY DAY FOR 90 DAYS hydroxyzine HCl 10 mg tablet 10 mg PO Q6HR PRN (Reason: Itching) Patient Comments: TAKE 1 TABLET BY MOUTH EVERY 6 HOURS NEEDED FOR 30 DAYS losartan 100 mg tablet 100 mg PO QDAY Patient Comments: TAKE 1 TABLET BY MOUTH EVERY DAY lactulose 10 gram/15 mL solution 15 ml PO QDAY Patient Comments: TAKE 15 ML BY MOUTH ONCE DAILY NEEDED Referrals: Emi Cook PA-C [Primary Care Provider] - Patient/Caregiver Discharge Instructions Discharge Activity: as per physical therapy Education Materials: Discharge Instructions for ... Print Language: Honduran Stand Alone Forms: [employer] Info., Patient Portal Info Letter Quality Discharge Quality Measures VTE prophylaxis
[2024-09-23 10:19] LABS: Bilirubin,Total 33.7 mg/dL (0.3-1.2)
--- NOTE | 2024-09-23 11:35 | PC.NURSE ---
Received a call from Gardenia @ [facility] Hand Clerical Verifier, requesting information from the chart, all questions answered, Gardenia is requesting copies of path report from 12/29, MRI and CT abd, 08/30, fax # is [phone], direct phone # [phone]. Informed Silvestre Rn in transfer dept., Silvestre will fax needed information Renaldo.
--- NOTE | 2024-09-23 13:54 | ESPR_ITS ---
RE: JAY GRAYSON : 1950 DATE OF SERVICE: 09/23/2024 SUBJECTIVE: This patient is a 74-year-old gentleman with a history of CVA, hypertension recently diagnosed with alcoholic liver cirrhosis, who was admitted to the hospital on 09/20/2024 with generalized weakness and poor intake. I was asked to see the patient for his elevated creatinine level of 2.1, which started to improve to 1.9 and today it is at 1.4. The patient also has increased bilirubin level with a MELD score of around 30. The patient is going to be transferred to [facility] for possible liver transplant surgery. CURRENT MEDICATIONS: 1. Acetaminophen. 2. Hydrocodone. 3. Lactulose. 4. Ondansetron. 5. Sodium chloride 100 mL per hour. 6. Protonix 40 mg IV daily. 7. Prednisone 20 mg daily. PHYSICAL EXAMINATION: General: He is very jaundiced, awake, alert. Vital Signs: Blood pressure of 143/67, heart rate of 92. HEENT: Icteric sclerae, normocephalic. Neck: Supple. No JVD. Chest and Lungs: Symmetrical expansion. Decreased breath sounds bilaterally. Heart: Without murmur. Abdomen: Soft. Extremities: Edema in both lower extremities. LABORATORY DATA: Hemoglobin 9.5, WBC 6000, platelet count 86,000. Total bilirubin 33.7, sodium 147, potassium 3.4, chloride 115, BUN 34, creatinine 1.4. ASSESSMENT: 1. Acute kidney injury most likely secondary to prerenal azotemia as it continues to improve with IV fluids however he also seems progressing to Type 1 HRS 2. Alcoholic liver cirrhosis without alcohol for eight months. 3. History of hypertension. 4. Multiple liver nodules, apparently benign. 5. Jaundice from liver cirrhosis. 6. Coagulopathy with hyperbilirubinemia. 7. Thrombocytopenia. 8. MELD score of 30. 9. Volume Overload fro, Liver cirrhosis PLAN: The patient hopefully will be transferred to [facility] for liver transplant. Continue monitoring kidney function daily. Once with HRS, his only chance of survival is a liver transplant. DT: 12:27:05 TT: 13:53:00 Ref: [id number] - TID: [id number] MTDD
--- NOTE | 2024-09-23 14:35 | PD.IMPROG ---
Documentation for date of: 09/23/24 Subjective Subjective Interval history: Spoke at length with excellent liver transplant surgeon at [facility] Dr. Kowalski He was kind and gracious enough to accept the patient for liver transplant evaluation Transfer center was contacted at [facility] from our center which is waiting for a bed at the moment including insurance clearance Patient renal function is improving I appreciate the input of Dr. Dunn Exam Vital Signs Temp Pulse Resp BP Pulse Ox O2 Del Method 98.0 F 68 17 134/66 H 96 Room Air 09/23/24 12:00 09/23/24 12:00 09/23/24 12:00 09/23/24 12:00 09/23/24 12:00 09/23/24 12:00 Constitutional Comments: Alert oriented Routine HEENT Exam Comments: Icteric sclera Objective Labs 09/23/24 08:25 09/23/24 08:25 Labs: Laboratory Results - last 24 hr 09/23/24 08:25 WBC 6.0 RBC 2.88 L Hgb 9.5 L Hct 25.9 L MCV 90 MCH 33.0 MCHC 36.7 RDW Std Deviation 74.9 H Plt Count 86 L Neut % (Auto) 68 Lymph % (Auto) 18 [place] % (Auto) 10 Eos % (Auto) 2 Baso % (Auto) 1 Neut # (Auto) 4.1 Lymph # (Auto) 1.1 [place] # (Auto) 0.6 Eos # (Auto) 0.1 Baso # (Auto) 0.0 Immature Gran # (Auto) 0.09 H Absolute Nucleated RBC 0.00 Immature Gran % 2 H Nucleated RBC % 0 PT 19.8 H D INR 1.9 H APTT 42.1 H D Sodium 147 H Potassium 3.4 Chloride 115 H Carbon Dioxide 20.1 Anion Gap 12 BUN 34 H Creatinine 1.4 H Estim Creat Clear Calc 56.9 L eGFR 53 L BUN/Creatinine Ratio 24 H Glucose 89 Calculated Osmolality 299 H Calcium 9.2 Corrected Calcium 9.3 Total Bilirubin 33.7 H* D AST 173 H ALT 174 H Alkaline Phosphatase 320 H Total Protein 6.1 Albumin 3.9 Globulin 2.2 L Albumin/Globulin Ratio 1.8 Impressions Impression: # Acutely decompensated liver disease MELD score of above 30 Patient accepted for possible liver transplant evaluation at [facility] which I believe is an excellent center and Dr. Kowalski comes highly recommended Assessment & Plan A&P Narrative # Decompensated chronic liver disease with acute decompensation etiology previous consumption of alcohol although patient has not drank for 8 months # Worsening renal function patient may be going into hepatorenal syndrome # Weakness secondary to above Plan Admit the patient Supportive care I will speak with [facility] to see if the patient can be excepted in transfer for a liver transplant evaluation Otherwise his prognosis is very poor Thank you very much for the opportunity to participate in the care of this patient Time Spent With Patient Time: Total time spent is greater than 50% in coordination of care (as documented) at patient's floor/unit and/or counseling patient:
--- NOTE | 2024-09-23 16:10 | PC.SS ---
Rounding note: pending open bed to [facility] for HLOC transfer.
[2024-09-23] MEDS: FUROSEMIDE INJ 10 MG/ML 4ML VIAL 40 MG IVP (21:59)
[2024-09-24] VITALS (9 sets, daily range): BP systolic 137–152; BP diastolic 67–77; PULSE 69–79; RESP 14–20; TEMP 35.9–36.9; O2SAT 95–97; BMI 31.3
[2024-09-24 05:58] LABS: Basophils % (Auto) 1 % (0-2.5); Eosinophils # (Auto) 0.2 Thou/mm3 (0.0-0.5); Eosinophils % (Auto) 3 % (0-10); Hematocrit 26.1 % (41.0-53.0); Hemoglobin 9.5 g/dL (13.5-16.0); Immature Granulocytes % (Auto) 2 % (0-0); Immature Granulocytes Auto 0.09 Thou/mm3 (0.00-0.00); Lymphocytes # (Auto) 1.1 Thou/mm3 (1.0-4.8); Lymphocytes % (Auto) 19 % (10-50); Mean Corpuscular HGB Conc 36.4 g/dl (31.0-37.0); Mean Corpuscular Hemoglobin 32.4 pg (25.0-35.0); Mean Corpuscular Volume 89 fL (80-100); Monocytes # (Auto) 0.6 Thou/mm3 (0.0-0.8); Monocytes % (Auto) 10 % (0-12); Neutrophils # (Auto) 4.1 Thou/mm3 (1.8-7.7); Neutrophils % (Auto) 67 % (37-80); Nucleated Red Blood Cell % 0 /100 WBC (0); Platelet Count 93 Thou/mm3 (140-440); RDW Standard Deviation 74.1 fL (35.1-43.9); Red Blood Count 2.93 Miln/mm3 (4.50-5.90); White Blood Count 6.1 Thou/mm3 (3.8-10.6)
[2024-09-24 06:46] LABS: Alanine Aminotransferase 184 U/L (10-49); Albumin, Serum 3.7 gm/dL (3.4-4.8); Albumin/Globulin Ratio 1.6 (1.2-2.2); Alkaline Phosphatase 343 U/L (46-116); Anion Gap 12 (7-16); Aspartate Amino Transferase 183 U/L (0-34); BUN/Creatinine Ratio 23 Ratio (12-20); Blood Urea Nitrogen 35 mg/dL (9-23); Calcium 9.4 mg/dL (8.3-10.6); Calcium (Corrected) 9.6 mg/dL (8.5-10.1); Carbon Dioxide 20.5 mMol/L (20.0-31.0); Chloride 112 mMol/L (98-107); Creatinine (Component) 1.5 mg/dL (0.6-1.3); Estimated Creatinine Clearance 53.1 mL/min (>60); Globulin 2.3 gm/dL (2.3-3.5); Glucose 94 mg/dL (74-106); Osmolality,Calculated 294 (275-295); Potassium 3.3 mMol/L (3.4-5.1); Sodium 144 mMol/L (136-145); eGFR 49 See Note
[2024-09-24 06:52] LABS: Bilirubin,Total 33.6 mg/dL (0.3-1.2)
[2024-09-24] MEDS: POTASSIUM CHLORIDE 20 mEq TABCR 40 MEQ PO (09:34)
[2024-09-24] MEDS: PANTOPRAZOLE INJ 40 MG VIAL IVP (09:34)
[2024-09-24] MEDS: predniSONE 20 MG TABLET PO (09:34)
[2024-09-24] MEDS: LACTULOSE SYRUP 20 GM/30 ML UDC 10 GM PO (09:35)
[2024-09-24] MEDS: FUROSEMIDE INJ 10 MG/ML 4ML VIAL 40 MG IVP ×2 (09:35→21:45)
--- NOTE | 2024-09-24 10:17 | PC.CM ---
I called and spoke to patient placement at [facility] [phone]. Stephanie states they currently are at capacity but expect they may have a bed once they start discharging patient. I provided my phone number and I faxed over discharge summary.
--- NOTE | 2024-09-24 10:52 | ESPR_ITS ---
<Statement entered by Mohamud Linda MD - 09/27/24 12:21> I reviewed above note and agree with findings and plans. I have also personally examined the patient with medicine team and went over assessment and plan with medical team including internship and resident physician. Documentation for date of: 09/24/24 Subjective Subjective Interval history: Patient was seen at bedside this morning. No overnight events. Patient's T bilirubin is stable at 33.6 today, but his creatinine did slightly increased to 1.5 from 1.4 yesterday. Patient was started on Lasix 40 twice daily as per licensed pesticide applicator and he was taken off fluids. No other complaints at this time and still pending transfer to a higher care center. Exam Vital Signs Temp Pulse Resp BP Pulse Ox O2 Del Method 98.4 F 71 20 146/67 H 96 Room Air 09/24/24 07:56 09/24/24 09:35 09/24/24 07:56 09/24/24 09:35 09/24/24 07:56 09/24/24 07:56 Narrative Exam General: A/O x4, no acute distress Eyes: PERRL, EOMI. icteric, vision grossly intact. Ears: No ear pain, no ear discharge, Hearing grossly intact. Nose: No nasal discharge. Mouth/Throat: Dry mucous membranes, no redness, no lesions. Neck: Neck supple, non-tender, no cervical lymphadenopathy. Lungs: Clear DOMINIK to auscultation and percussion, No accessory muscle use. Cardio: Normal S1/S2, regular rhythm, systolic murmur, no JVD Abdomen: Soft, non-tender, no palpable masses, peristalsis present, no guarding or rebound. Positive for fluid wave. Extremities: Symmetrical, no significant deformities, 2+ peripheral edema , non-tender, peripheral pulses presents. Skin: No rashes, no lesions, warm to touch. Jaundice all throughout. Neuro: No focal neurological deficits. motor and sensory intact Psych: Cooperative, appropriate mood and effect. Objective Labs 09/24/24 05:30 09/24/24 05:30 Labs: Laboratory Results - last 24 hr 09/24/24 05:30 WBC 6.1 RBC 2.93 L Hgb 9.5 L Hct 26.1 L MCV 89 MCH 32.4 MCHC 36.4 RDW Std Deviation 74.1 H Plt Count 93 L Neut % (Auto) 67 Lymph % (Auto) 19 [place] % (Auto) 10 Eos % (Auto) 3 Baso % (Auto) 1 Neut # (Auto) 4.1 Lymph # (Auto) 1.1 [place] # (Auto) 0.6 Eos # (Auto) 0.2 Baso # (Auto) 0.0 Immature Gran # (Auto) 0.09 H Absolute Nucleated RBC 0.00 Immature Gran % 2 H Nucleated RBC % 0 Sodium 144 Potassium 3.3 L Chloride 112 H Carbon Dioxide 20.5 Anion Gap 12 BUN 35 H Creatinine 1.5 H Estim Creat Clear Calc 53.1 L eGFR 49 L BUN/Creatinine Ratio 23 H Glucose 94 Calculated Osmolality 294 Calcium 9.4 Corrected Calcium 9.6 Total Bilirubin 33.6 H* AST 183 H ALT 184 H Alkaline Phosphatase 343 H D Total Protein 6.0 Albumin 3.7 Globulin 2.3 Albumin/Globulin Ratio 1.6 Quality Measures Quality Measures VTE prophylaxis Advance care planning discussed with:: patient Assessment & Plan Assessment Current Active Medications: Generic Name Dose Route Start Last Admin Trade Name Freq PRN Reason Stop Dose Admin Acetaminophen 650 mg 09/20/24 10:19 Acetaminophen 325 Mg Tablet PO 10/19/24 17:22 Q6H PRN pain(1-3) and Fever >100.4 Hydrocodone Bitart/Acetaminophen 1 tab 09/19/24 17:23 Hydrocodone/Apap 5/325 Tablet PO 09/24/24 17:22 Q4HR PRN PAIN SCALE 4-6 (Moderate Furosemide 40 mg 09/23/24 21:00 09/24/24 09:35 Furosemide Inj 10 Mg/Ml 4ml Vial IVP 10/23/24 20:59 40 mg BID HAILY Administration Sodium Chloride 1,000 mls @ 100 mls/hr 09/20/24 11:07 09/23/24 15:13 Ns IV 10/20/24 11:06 100 mls/hr .Q10H HAILY Administration Lactulose 10 gm 09/20/24 09:00 09/24/24 09:35 Lactulose Syrup 20 Gm/30 Ml Udc PO 10/20/24 08:59 10 gm QDAY HAILY Administration Protocol Ondansetron HCl 4 mg 09/19/24 17:23 Ondansetron Inj 2 Mg/Ml Inj 2 Ml IV 10/19/24 17:22 Q6H PRN NAUSEA OR VOMITING Protocol Pantoprazole Sodium 40 mg 09/19/24 17:30 09/24/24 09:34 Pantoprazole Inj 40 Mg Vial IVP 10/19/24 17:29 40 mg QDAY HAILY Administration Prednisone 20 mg 09/20/24 11:30 09/24/24 09:34 Prednisone 20 Mg Tablet PO 10/20/24 11:29 20 mg QDAY HAILY Administration Plan 74-year-old male with past medical history of alcohol cirrhosis, alcohol use disorder, rheumatoid arthritis, hypertension, spinal stenosis, and CVA was admitted to the hospital on 09/19/2024 for SABINE likely in the setting of poor oral intake versus hepatorenal in the setting of decompensated cirrhosis. #Decompensated cirrhosis #Coagulopathy #Hyperbilirubinemia #Transaminitis -Patient has a hx of cirrhosis and follow up outpatient with GI ?MELD NA score of 30 points, 27 to 32% estimated mortality in 90 days ? Child-Hatfield score of 9 points, child class B, patient would benefit from liver transplant ?No suspicion for SBP now given the patient does not have any GI bleed ? AST 361, ALT 373, alkaline phosphatase 557, T bilirubin 27.9 on admission - INR 1.9 -T. Bilirubin continues to uptrend, currently at 33.6 -AST 183, ALT 184, ALP 343 today Plan: ? Lactulose 10 g daily - Pending transfer for liver transplant evaluation ? GI consulted, appreciate recommendations ? Will continue to monitor #SABINE likely prerenal in the setting of #Poor oral intake #Generalized weakness ?Patient came in with a creatinine of 2.1 and BUN of 52 ? Patient's base creatinine is around 1 with the most recent 1 being 1.3 on 09/08/2024 ?DDx SABINE likely prerenal in the setting of poor oral intake versus hepatorenal in the setting of decompensated cirrhosis - Creatinine 1.5 today Plan: ? Diuresis as per nephrology with lasix 40 BID ? Nephrology consulted, appreciate commendations ? Will continue to monitor #Hypoalbuminemia ? Albumin 3 on admission and 3.7 today Plan: ? Will continue to monitor #Mild leukocytosis, resolved ?Patient had WBC of 10.7 on admission, 6.1 today ? Likely reactive ? No fever or possible source of infection. Plan: ? Will continue to monitor #Normocytic normochromic anemia ?Hemoglobin 13 admission, 9.5 today ? Patient has a base hemoglobin of around 13.5 - Likely hemodilution Plan: ? Will transfuse hemoglobin less than 7 ? Will continue monitor #Hx of CVA ? Patient takes aspirin at home #Hx of HTN ? Will hold off on antihypertensive medications for now given possible hepatorenal syndrome. Disposition: Continue IV fluids, pending transfer for liver transplant evaluation. Diet: Renal GI prophylaxis: protonix DVT prophylaxis: SCDs Code: Full code Case disclosed with Attending Dr. Linda and My senior Dr. Maravilla PGY2. Paddy Mejia PGY1 Senior Resident Attestation: The patient reported doing fairly well this morning. His vitals were stable. Physical exam was significant for generalized icterus, ascites and 2-3+ bilateral peripheral pitting edema. Labs were significant for total bilirubin 33.6 this morning. Creatinine mildly trended up from 1.4-1.5. We discontinued IV fluid, and continued the patient on IV Lasix 40 Mg IV twice daily. The patient is probably getting transferred to [facility] for assessment of possible liver transplant. I discussed with and supervised the internship physician involved in the care of this patient. I personally saw and examined the patient and discussed the assessment and plan with the entire medicine team, including my attending. I agree with the assessment and plan as documented above. Dante Maravilla MD PGY2 Internal Medicine
--- NOTE | 2024-09-24 14:32 | PD.RESDS ---
Planned Discharge Date 09/24/24 DS: Providers Provider Date of admission: 09/20/24 09:40 Primary care physician: Emi Cook PA-C Admitting Provider: Paddy Mejia MD Attending Provider on Admission: Mohamud Linda MD Consults: 09/19/24 16:34 Consult to Gastroenterology Stat Comment: Consulting Provider: Angelo Barrow 09/19/24 17:32 Consult to Nephrology Routine Comment: Consulting Provider: Linda Yu 09/19/24 21:59 Referral Registered Dietitian Stat Comment: 09/20/24 11:17 Referral Physical Therapy Routine Comment: Physician Instructions: Attending Provider on DC: Mohamud Linda MD Discharging Provider: Mohamud Linda MD DS: Diagnosis Problem List Completed Was Problem List Reviewed/Reconciled?: Yes Hospital Course Hospital Course Hospital course: 74-year-old male with past medical history of alcohol cirrhosis, alcohol use disorder, rheumatoid arthritis, hypertension, spinal stenosis, and CVA was admitted to the hospital on 09/19/2024 for SABINE likely in the setting of poor oral intake. In the ED came with complaints of generalized weakness. Initially patient was afebrile and normotensive. Initial labs were relevant for mild leukocytosis (10.7), normocytic normochromic anemia (Hgb 13.0), coagulopathy (PT 14.9 and INR 1.4), SABINE (BUN 52 and creatinine 2.1), hyperbilirubinemia (27.9), transaminitis (AST 361/ALT 373/alkaline phosphatase 557), elevated lactate dehydrogenase 338, and hypoalbuminemia (3). There was some no initial imaging at this time. Nephrology and GI were consulted during the patient's hospital stay. Nephrology recommended to treat patient with IV albumin as well as IV fluids due to his SABINE likely in the setting of poor oral intake. Throughout his hospital stay his kidney function improved steadily. GI specialist wanted to transfer patient to higher center of care for liver transplant evaluation. During the hospital stay patient's kidney function improved, but his T bilirubin continued to uptrend. His MELD NA score was 30 indicating a 27 to 32% of estimated mortality in 90 days and his child Hatfield score of 9 points. Patient has been alcohol free for the last 8 months. At the time of transfer patient was stable enough to be transferred. Discharge Plan: Transfer to [facility] for further assessment of liver transplant. Dr. Kowalski is aware of the patient. Problem list: #Decompensated cirrhosis #Coagulopathy #Hyperbilirubinemia #Transaminitis #SABINE likely prerenal in the setting of Poor oral intake #Generalized weakness #Hypoalbuminemia #Mild leukocytosis, resolved #Normocytic normochromic anemia #Hx of CVA #Hx of HTN Case disclosed with Attending Dr. Linda and My senior Dr. Maravilla PGY2. Paddy Mejia PGY1 Senior Resident Attestation: I discussed with and supervised the pr internship physician involved in the care of this patient. I personally saw and examined the patient and discussed the assessment and plan with the entire medicine team, including my attending. I agree with the transfer plan as documented above. Dante Maravilla MD PGY2 Internal Medicine Time Spent with Patient Time attestation: Total time spent providing and/or coordinating discharge services: >35 min Exam Vital Signs Temp Pulse Resp BP Pulse Ox O2 Del Method 96.7 F L 72 20 149/73 H 96 Room Air 09/24/24 12:00 09/24/24 12:00 09/24/24 12:09/24/24 12:00 09/24/24 12:09/24/24 12:00 Narrative Exam General: A/O x4, no acute distress Eyes: PERRL, EOMI. icteric, vision grossly intact. Ears: No ear pain, no ear discharge, Hearing grossly intact. Nose: No nasal discharge. Mouth/Throat: Dry mucous membranes, no redness, no lesions. Neck: Neck supple, non-tender, no cervical lymphadenopathy. Lungs: Clear DOMINIK to auscultation and percussion, No accessory muscle use. Cardio: Normal S1/S2, regular rhythm, systolic murmur, no JVD Abdomen: Soft, non-tender, no palpable masses, peristalsis present, no guarding or rebound. Positive for fluid wave. Extremities: Symmetrical, no significant deformities, 2+ peripheral edema , non-tender, peripheral pulses presents. Skin: No rashes, no lesions, warm to touch. Jaundice all throughout. Neuro: No focal neurological deficits. motor and sensory intact Psych: Cooperative, appropriate mood and effect Discharge Plan Plan Patient Disposition: [facility] Other Facility Pt Being Transferred to: [facility] Service Needed for Transfer: Liver transplant Disposition Comment: Dr. Kowalski already aware of the situation Prescriptions/Referrals Prescriptions/Med Rec: Continued tizanidine 4 mg tablet 4 mg PO HS Hold Instructions: Resume on 01/06/24. Patient Comments: TAKE 1 TABLET BY MOUTH THREE TIMES A DAY NEEDED FOR 10 DAYS amlodipine 5 mg tablet 5 mg PO QDAY aspirin 81 mg Capsule 81 mg PO QDAY Hold Instructions: Resume on 09/16/24. Resume aspirin on thursday09/16/24 Changed prednisone 10 mg Tablet 20 mg PO QDAY Qty: 20 0RF Rx Instructions: total of 20mg daily in divided doses Discontinued losartan 100 mg tablet 100 mg PO QDAY Patient Comments: TAKE 1 TABLET BY MOUTH EVERY DAY No Action cimetidine 400 mg tablet 400 mg PO HS Patient Comments: TAKE 1 TABLET BY MOUTH NIGHTLY AT BEDTIME pantoprazole 40 mg tablet,delayed release (DR/EC) 40 mg PO ACBR Patient Comments: TAKE 1 TABLET 1/2 TO 1 HOUR BEFORE MORNING MEAL ORALLY ONCE A DAY 30 DAYS hydrochlorothiazide 12.5 mg capsule 12.5 mg PO QDAY Patient Comments: TAKE 1 CAPSULE BY MOUTH EVERY DAY FOR 90 DAYS hydroxyzine HCl 10 mg tablet 10 mg PO Q6HR PRN (Reason: Itching) Patient Comments: TAKE 1 TABLET BY MOUTH EVERY 6 HOURS NEEDED FOR 30 DAYS losartan 100 mg tablet 100 mg PO QDAY Patient Comments: TAKE 1 TABLET BY MOUTH EVERY DAY lactulose 10 gram/15 mL solution 15 ml PO QDAY Patient Comments: TAKE 15 ML BY MOUTH ONCE DAILY NEEDED Referrals: Emi Cook PA-C [Primary Care Provider] - Patient/Caregiver Discharge Instructions Discharge Activity: as per physical therapy Education Materials: Discharge Instructions for ... Print Language: Citizen Of [place] Stand Alone Forms: [employer]ica Award Info., Patient Portal Info Letter Quality Discharge Quality Measures VTE prophylaxis
--- NOTE | 2024-09-24 15:41 | ESPR_ITS ---
Documentation for date of: 09/24/24 Subjective Subjective Interval history: Patient evaluated WBC count 6.1 hemoglobin hematocrit 9.5 and 26.1 Platelet count 93,000 BUN/creatinine 35 and 1.5 Total bilirubin 33.6 Wait[address] bed at [facility] liver transplant team Exam Vital Signs Temp Pulse Resp BP Pulse Ox O2 Del Method 96.7 F L 72 20 149/73 H 96 Room Air 09/24/24 12:00 09/24/24 12:00 09/24/24 12:00 09/24/24 12:00 09/24/24 12:00 09/24/24 12:00 Constitutional Comments: Icteric sclera Alert and oriented Routine Respiratory Exam Comments: Normal to auscultation Routine Abdominal Exam Comments: Soft nontender Objective Labs 09/24/24 05:30 09/24/24 05:30 Labs: Laboratory Results - last 24 hr 09/24/24 05:30 WBC 6.1 RBC 2.93 L Hgb 9.5 L Hct 26.1 L MCV 89 MCH 32.4 MCHC 36.4 RDW Std Deviation 74.1 H Plt Count 93 L Neut % (Auto) 67 Lymph % (Auto) 19 [place] % (Auto) 10 Eos % (Auto) 3 Baso % (Auto) 1 Neut # (Auto) 4.1 Lymph # (Auto) 1.1 [place] # (Auto) 0.6 Eos # (Auto) 0.2 Baso # (Auto) 0.0 Immature Gran # (Auto) 0.09 H Absolute Nucleated RBC 0.00 Immature Gran % 2 H Nucleated RBC % 0 Sodium 144 Potassium 3.3 L Chloride 112 H Carbon Dioxide 20.5 Anion Gap 12 BUN 35 H Creatinine 1.5 H Estim Creat Clear Calc 53.1 L eGFR 49 L BUN/Creatinine Ratio 23 H Glucose 94 Calculated Osmolality 294 Calcium 9.4 Corrected Calcium 9.6 Total Bilirubin 33.6 H* AST 183 H ALT 184 H Alkaline Phosphatase 343 H D Total Protein 6.0 Albumin 3.7 Globulin 2.3 Albumin/Globulin Ratio 1.6 Impressions Impression: # Acutely decompensated chronic liver disease Patient most likely will need a liver transplant Biopsy of the liver masses is negative for any hepatocellular carcinoma # Thrombocytopenia Continue current management Assessment & Plan A&P Narrative # Decompensated chronic liver disease with acute decompensation etiology previous consumption of alcohol although patient has not drank for 8 months # Worsening renal function patient may be going into hepatorenal syndrome # Weakness secondary to above Plan Admit the patient Supportive care I will speak with [facility] to see if the patient can be excepted in transfer for a liver transplant evaluation Otherwise his prognosis is very poor Thank you very much for the opportunity to participate in the care of this patient Time Spent With Patient Time: Total time spent is greater than 50% in coordination of care (as documented) at patient's floor/unit and/or counseling patient:
[2024-09-25] VITALS (10 sets, daily range): BP systolic 122–144; BP diastolic 58–77; PULSE 56–79; RESP 15–24; TEMP 36.4–36.9; O2SAT 95–99
[2024-09-25 05:29] LABS: Basophils % (Auto) 1 % (0-2.5); Eosinophils # (Auto) 0.2 Thou/mm3 (0.0-0.5); Eosinophils % (Auto) 2 % (0-10); Hematocrit 26.1 % (41.0-53.0); Hemoglobin 9.7 g/dL (13.5-16.0); Immature Granulocytes % (Auto) 2 % (0-0); Immature Granulocytes Auto 0.11 Thou/mm3 (0.00-0.00); Lymphocytes # (Auto) 1.3 Thou/mm3 (1.0-4.8); Lymphocytes % (Auto) 19 % (10-50); Mean Corpuscular HGB Conc 37.2 g/dl (31.0-37.0); Mean Corpuscular Hemoglobin 32.2 pg (25.0-35.0); Mean Corpuscular Volume 87 fL (80-100); Monocytes # (Auto) 0.6 Thou/mm3 (0.0-0.8); Monocytes % (Auto) 9 % (0-12); Neutrophils # (Auto) 4.5 Thou/mm3 (1.8-7.7); Neutrophils % (Auto) 67 % (37-80); Nucleated Red Blood Cell % 0 /100 WBC (0); Platelet Count 120 Thou/mm3 (140-440); RDW Standard Deviation 73.6 fL (35.1-43.9); Red Blood Count 3.01 Miln/mm3 (4.50-5.90); White Blood Count 6.7 Thou/mm3 (3.8-10.6)
[2024-09-25 06:19] LABS: Alanine Aminotransferase 184 U/L (10-49); Albumin, Serum 3.6 gm/dL (3.4-4.8); Albumin/Globulin Ratio 1.6 (1.2-2.2); Alkaline Phosphatase 384 U/L (46-116); Anion Gap 12 (7-16); Aspartate Amino Transferase 187 U/L (0-34); BUN/Creatinine Ratio 22 Ratio (12-20); Blood Urea Nitrogen 38 mg/dL (9-23); Calcium 9.2 mg/dL (8.3-10.6); Calcium (Corrected) 9.5 mg/dL (8.5-10.1); Chloride 107 mMol/L (98-107); Creatinine (Component) 1.7 mg/dL (0.6-1.3); Estimated Creatinine Clearance 46.9 mL/min (>60); Globulin 2.3 gm/dL (2.3-3.5); Glucose 94 mg/dL (74-106); Osmolality,Calculated 293 (275-295); Sodium 143 mMol/L (136-145); Total Protein 5.9 gm/dL (5.7-8.2); eGFR 42 See Note
[2024-09-25 06:57] LABS: Bilirubin,Total 35.4 mg/dL (0.3-1.2)
[2024-09-25 08:37] LABS: INR 1.9 (0.9-1.3); Prothrombin Time 20.1 Seconds (9.0-12.2)
[2024-09-25] MEDS: LACTULOSE SYRUP 20 GM/30 ML UDC 10 GM PO (08:38)
[2024-09-25] MEDS: FUROSEMIDE INJ 10 MG/ML 4ML VIAL 40 MG IVP (08:39)
[2024-09-25] MEDS: POTASSIUM CHLORIDE 20 mEq TABCR 40 MEQ PO (08:39)
[2024-09-25] MEDS: predniSONE 20 MG TABLET PO (08:39)
[2024-09-25] MEDS: PANTOPRAZOLE INJ 40 MG VIAL IVP (08:40)
--- NOTE | 2024-09-25 12:04 | PC.NURSE ---
update given to Tracie from [facility], all questions answered, bed is still not available at transfer facility.
--- NOTE | 2024-09-25 12:12 | PD.RESDS ---
Planned Discharge Date 09/25/24 DS: Providers Provider Date of admission: 09/20/24 09:40 Primary care physician: Emi Cook PA-C Admitting Provider: Paddy Mejia MD Attending Provider on Admission: Mohamud Linda MD Consults: 09/19/24 16:34 Consult to Gastroenterology Stat Comment: Consulting Provider: Angelo Barrow 09/19/24 17:32 Consult to Nephrology Routine Comment: Consulting Provider: Linda Yu 09/19/24 21:59 Referral Registered Dietitian Stat Comment: 09/20/24 11:17 Referral Physical Therapy Routine Comment: Physician Instructions: Attending Provider on DC: Mohamud Linda MD Discharging Provider: Mohamud Linda MD DS: Diagnosis Problem List Completed Was Problem List Reviewed/Reconciled?: Yes Hospital Course Hospital Course Hospital course: 74-year-old male with past medical history of alcohol cirrhosis, alcohol use disorder, rheumatoid arthritis, hypertension, spinal stenosis, and CVA was admitted to the hospital on 09/19/2024 for SABINE likely in the setting of poor oral intake. In the ED came with complaints of generalized weakness. Initially patient was afebrile and normotensive. Initial labs were relevant for mild leukocytosis (10.7), normocytic normochromic anemia (Hgb 13.0), coagulopathy (PT 14.9 and INR 1.4), SABINE (BUN 52 and creatinine 2.1), hyperbilirubinemia (27.9), transaminitis (AST 361/ALT 373/alkaline phosphatase 557), elevated lactate dehydrogenase 338, and hypoalbuminemia (3). There was some no initial imaging at this time. Nephrology and GI were consulted during the patient's hospital stay. Nephrology recommended to treat patient with IV albumin as well as IV fluids due to his SABINE likely in the setting of poor oral intake. Throughout his hospital stay his kidney function improved steadily. GI specialist wanted to transfer patient to higher center of care for liver transplant evaluation. During the hospital stay patient's kidney function improved, but his T bilirubin continued to uptrend. His MELD NA score was 30 indicating a 27 to 32% of estimated mortality in 90 days and his child Hatfield score of 9 points. Patient has been alcohol free for the last 8 months. At the time of transfer patient was stable enough to be transferred. 09/25/2024: Patient was seen at bedside this morning. No overnight events. Patient developed some pruritus likely in the setting of hyperbilirubinemia. Cholestyramine was ordered. Patient is currently also up trended to 1.7 which could be indicating that he is not going to hepatorenal syndrome type I at this time. Recommend to start midodrine, octreotide, and albumin as per nephrology. No other complaints at this time. Discharge Plan: Transfer to [facility] for further assessment of liver transplant. Dr. Kowalski is aware of the patient. Problem list: #Decompensated cirrhosis #Coagulopathy #Hyperbilirubinemia #Hepatorenal syndrome type 1 #Transaminitis #SABINE likely prerenal in the setting of Poor oral intake #Generalized weakness #Hypoalbuminemia #Mild leukocytosis, resolved #Normocytic normochromic anemia #Hx of CVA #Hx of HTN Case disclosed with Attending Dr. Maddi Mejia PGY1 Time Spent with Patient Time attestation: Total time spent providing and/or coordinating discharge services: Exam Vital Signs Temp Pulse Resp BP Pulse Ox O2 Del Method 97.8 F 75 17 130/65 95 Room Air 09/25/24 08:00 09/25/24 08:39 09/25/24 08:00 09/25/24 08:39 09/25/24 08:00 09/25/24 08:00 Narrative Exam General: A/O x4, no acute distress Eyes: PERRL, EOMI. icteric, vision grossly intact. Ears: No ear pain, no ear discharge, Hearing grossly intact. Nose: No nasal discharge. Mouth/Throat: Dry mucous membranes, no redness, no lesions. Neck: Neck supple, non-tender, no cervical lymphadenopathy. Lungs: Clear DOMINIK to auscultation and percussion, No accessory muscle use. Cardio: Normal S1/S2, regular rhythm, systolic murmur, no JVD Abdomen: Soft, non-tender, no palpable masses, peristalsis present, no guarding or rebound. Extremities: Symmetrical, no significant deformities, 2+ peripheral edema , non-tender, peripheral pulses presents. Skin: No rashes, no lesions, warm to touch. Jaundice noted. Neuro: No focal neurological deficits. motor and sensory intact Psych: Cooperative, appropriate mood and effect Discharge Plan Plan Patient Disposition: Xfer Other Facility Pt Being Transferred to: [facility] Service Needed for Transfer: Liver transplant Disposition Comment: Dr. Kowalski already aware of the situation Prescriptions/Referrals Prescriptions/Med Rec: Continued tizanidine 4 mg tablet 4 mg PO HS Hold Instructions: Resume on 01/06/24. Patient Comments: TAKE 1 TABLET BY MOUTH THREE TIMES A DAY NEEDED FOR 10 DAYS amlodipine 5 mg tablet 5 mg PO QDAY aspirin 81 mg Capsule 81 mg PO QDAY Hold Instructions: Resume on 09/16/24. Resume aspirin on thursday09/16/24 Changed prednisone 10 mg Tablet 20 mg PO QDAY Qty: 20 0RF Rx Instructions: total of 20mg daily in divided doses Discontinued losartan 100 mg tablet 100 mg PO QDAY Patient Comments: TAKE 1 TABLET BY MOUTH EVERY DAY No Action cimetidine 400 mg tablet 400 mg PO HS Patient Comments: TAKE 1 TABLET BY MOUTH NIGHTLY AT BEDTIME pantoprazole 40 mg tablet,delayed release (DR/EC) 40 mg PO ACBR Patient Comments: TAKE 1 TABLET 1/2 TO 1 HOUR BEFORE MORNING MEAL ORALLY ONCE A DAY 30 DAYS hydrochlorothiazide 12.5 mg capsule 12.5 mg PO QDAY Patient Comments: TAKE 1 CAPSULE BY MOUTH EVERY DAY FOR 90 DAYS hydroxyzine HCl 10 mg tablet 10 mg PO Q6HR PRN (Reason: Itching) Patient Comments: TAKE 1 TABLET BY MOUTH EVERY 6 HOURS NEEDED FOR 30 DAYS losartan 100 mg tablet 100 mg PO QDAY Patient Comments: TAKE 1 TABLET BY MOUTH EVERY DAY lactulose 10 gram/15 mL solution 15 ml PO QDAY Patient Comments: TAKE 15 ML BY MOUTH ONCE DAILY NEEDED Referrals: Emi Cook PA-C [Primary Care Provider] - Patient/Caregiver Discharge Instructions Discharge Activity: as per physical therapy Education Materials: Discharge Instructions for ... Print Language: [place] Stand Alone Forms: [employer]ica Award Info., Patient Portal Info Letter Quality Discharge Quality Measures VTE prophylaxis
[2024-09-25] MEDS: ALBUMIN HUMAN 25% IVPB 25 GM/100 ML BTL IV (12:30)
[2024-09-25] MEDS: CHOLESTYRAMINE/SUCROSE 1 PKT EA PO (12:30)
--- NOTE | 2024-09-25 12:32 | ESPR_ITS ---
Documentation for date of: 09/25/24 Subjective Subjective Interval history: Deteriorating liver function with total bilirubin jumped up to 35.4 AST ALT 187 and 184 BUN/creatinine 38 and 1.7 Awaiting insurance clearance for a bed to be available at [facility] Exam Vital Signs Temp Pulse Resp BP Pulse Ox O2 Del Method 97.6 F 70 17 128/69 95 Room Air 09/25/24 12:00 09/25/24 12:00 09/25/24 12:00 09/25/24 12:00 09/25/24 12:00 09/25/24 12:00 Objective Labs 09/25/24 05:17 09/25/24 05:17 Labs: Laboratory Results - last 24 hr 09/25/24 05:17 WBC 6.7 RBC 3.01 L Hgb 9.7 L Hct 26.1 L MCV 87 MCH 32.2 MCHC 37.2 H RDW Std Deviation 73.6 H Plt Count 120 L D Neut % (Auto) 67 Lymph % (Auto) 19 [place] % (Auto) 9 Eos % (Auto) 2 Baso % (Auto) 1 Neut # (Auto) 4.5 Lymph # (Auto) 1.3 [place] # (Auto) 0.6 Eos # (Auto) 0.2 Baso # (Auto) 0.0 Immature Gran # (Auto) 0.11 H Absolute Nucleated RBC 0.00 Immature Gran % 2 H Nucleated RBC % 0 PT 20.1 H INR 1.9 H APTT 42.0 H Sodium 143 Potassium 3.0 L Chloride 107 Carbon Dioxide 24.0 Anion Gap 12 BUN 38 H Creatinine 1.7 H Estim Creat Clear Calc 46.9 L eGFR 42 L BUN/Creatinine Ratio 22 H Glucose 94 Calculated Osmolality 293 Calcium 9.2 Corrected Calcium 9.5 Total Bilirubin 35.4 H* D AST 187 H ALT 184 H Alkaline Phosphatase 384 H D Total Protein 5.9 Albumin 3.6 Globulin 2.3 Albumin/Globulin Ratio 1.6 Impressions Impression: # Acutely decompensated liver disease secondary to alcohol patient has been abstinent from alcohol for a long time # Coagulopathy # Thrombocytopenia # SABINE Continue current management Assessment & Plan A&P Narrative # Decompensated chronic liver disease with acute decompensation etiology previous consumption of alcohol although patient has not drank for 8 months # Worsening renal function patient may be going into hepatorenal syndrome # Weakness secondary to above Plan Admit the patient Supportive care I will speak with [facility] to see if the patient can be excepted in transfer for a liver transplant evaluation Otherwise his prognosis is very poor Thank you very much for the opportunity to participate in the care of this patient Time Spent With Patient Time: Total time spent is greater than 50% in coordination of care (as documented) at patient's floor/unit and/or counseling patient:
[2024-09-25] MEDS: OCTREOTIDE ACET INJ 1,000 MCG in SODIUM CHLORIDE 0.9% 100 ML 5.1 MCG IV (14:21)
[2024-09-25] MEDS: MIDODRINE 5 MG TABLET PO (14:21)
--- NOTE | 2024-09-25 14:35 | PC.NURSE ---
Received call from ZAKIYA Romano. requesting to send discharge summary for today. Faxed discharge summary to number provided at [phone].
--- NOTE | 2024-09-25 15:10 | PC.NURSE ---
per Dr. Harden, Octreotide stopped and is to be initiated at transfer facility.
--- NOTE | 2024-09-25 16:05 | PC.NURSE ---
spoke with Loree transfer RN from [facility], pt is assigned bed number [id number], transport is to be set up with EMS, Loree is requesting a call back to [facility] when a transport time is established for pt pick-up. Call-back number for Loree is [phone] (choose option 2, then again option 2).
--- NOTE | 2024-09-25 16:13 | PC.NURSE ---
Report given to Savannah LEI from [facility], all questions answered.
--- NOTE | 2024-09-25 20:57 | PC.NURSE ---
patient transfer to [facility]son Jones, EMS picked up patient at [phone], patient left via gurney. Last set of VS BP 141/71, HR 77, RR 20, 98% on RA, T 98.1. Patient has no complaints of pain. Patient and family took all belongings with them. Called Rosalina from [facility] for clinical update for patient and ETA time.
== END 2024-09-25 20:44 | disposition other institution (70) | DRG 432 ==
LOC: SERX 18:25 → S3NX 09-20 06:39 → SERHOLD 09-20 09:10 → S3NX 09-20 09:10
PROVIDERS: Internal Medicine Nephrology; Registered Nurse General Practice; Student in an Organized Health Care Education/Training Program; Admitting Provider Student in an Organized Health Care Education/Training Program; Emergency Provider Emergency Medicine; PCP Physician Assistant; Visit Provider Internal Medicine
DX: K70.31 Alcoholic cirrhosis of liver with ascites (principal); K76.7 Hepatorenal syndrome; D68.9 Coagulation defect, unspecified; N17.9 Acute kidney failure, unspecified; M06.9 Rheumatoid arthritis, unspecified; Z86.73 Personal history of transient ischemic attack (TIA), and cerebral infarction without residual deficits; I10 Essential (primary) hypertension; L29.9 Pruritus, unspecified; D64.9 Anemia, unspecified; E88.09 Other disorders of plasma-protein metabolism, not elsewhere classified; I44.0 Atrioventricular block, first degree; D69.6 Thrombocytopenia, unspecified
CPT/HCPCS: 36415; 76770; 80053; 80061; 80307; 81001; 82140; 82570; 83615; 83735; 83880; 84100; 84300; 84443; 85025; 85610; 85730; 93005; 93225; 96365; 96366; 96375; 97162; 99285; G0378; J1940; J2354; J2470; J7030; J7050; J7512; P9047; A9270